=== PATIENT | female | born 1930 | race Caucasian/White ===

== ENCOUNTER 2017-06-26 18:25 | Inpatient (IN) | payer OTHER ==
[~2017-06-26] VITALS: Ht 160 cm; Wt 82.5 kg
--- NOTE | ~2017-06-26 | CR127 ---
[facility] A Service of [facility] RADIOLOGY TEXT RESULTS PATIENT: TAMRA WALDEN LOCATION: [facility] [address]-71 : 31 UNIT #: [id number] AGE: [address]: Rocio Marcelo MD SEX: F ORDER DR: [id number] [facility] [address] [facility] [place], [place] [address] [id number] I MR#: [id number] Acc #: [id number] NAME: TAMRA WALDEN : 1930 SEX: F STUDY DATE/TIME: 06/26/2017 19:14 UNIT: [facility] ROOM: [id number] STUDY DESCRIPTION: CR Foot Complete Min 3 View Rt Attending Physician: Rocio Marcelo M.D. Ordering Physician: Mery Tyson M.D. Primary Care Physician: Emily Portillo M.D. MEDICAL IMAGING REPORT This report is preliminary unless electronic signature is present EXAM Right foot, 3 views HISTORY Foot pain beginning 5 days ago. FINDINGS Three views of the right foot demonstrates multifocal arthritic changes most prominent at the talonavicular joint and tarsometatarsal joints and first MTP joint. No fracture or dislocation. Soft tissue swelling. Suspected hammertoe deformities. Metallic density projects over the second toe could represent a retained foreign body. IMPRESSION 1. Diffuse soft tissue swelling about the foot and ankle with a wire metal foreign body about the second toe near the PIP joint. This could represent a retained foreign body. Correlate clinically. 2. Multifocal arthritic changes involving midfoot and also first MTP joint. 3. Suspected hammertoe deformities. 4. Not mentioned above, there is extensive arteriovascular calcifications which may reflect peripheral vascular disease. Dictated by... Jayshree Phoenix M.D. THIS IS AN ELECTRONICALLY VERIFIED REPORT Jayshree Phoenix M.D. at 06/26/2017 10:05 PM JULIO/alberto TD: 06/26/2017 21:46 [facility] A Service [facility] RADIOLOGY TEXT RESULTS PATIENT: TAMRA WALEDN LOCATION: [facility] [address]-19 : 31 UNIT #: [id number] AGE: [address]: Rocio Marcelo MD SEX: F ORDER DR: JOB #: [id number] MEDICAL IMAGING REPORT Page 1 of 1 COPY
--- NOTE | ~2017-06-26 | OR ---
Unit #: [id number] #: [id number] Patient: TAMRA WALDEN [id number] [address] [place], [place] [address] [id number] I MR#: [id number] NAME: TAMRA WALDEN ROOM: [facility] Date of Procedure: 06/28/2017 Admission Date: 06/26/2017 Surgeon: Tejinder Yu M.D. : 1930 Attending Physician: Olena Ramirez M.D. Primary Care Physician: Emily Portillo M.D. OPERATIVE REPORT PREOPERATIVE DIAGNOSES 1. Right fifth toe gangrene. 2. Right deep foot infection. POSTOPERATIVE DIAGNOSES 1. Right fifth toe gangrene. 2. Right deep foot infection. PROCEDURES PERFORMED 1. Right foot incision and drainage of deep abscess (). 2. Right fifth toe amputation through metatarsophalangeal joint level (02007). ASSISTANTS Gaston and Lucy. ANESTHESIA General. INDICATIONS FOR SURGERY This 87-year-old female with 1-week history of right foot swelling, erythema, and pain following some unknown trauma to the plantar aspect of the foot, now is septic with a white blood cell count of 30,000. She has a fluctuant midfoot and is to undergo incision and drainage of a suspected deep abscess. MRI was ordered, but could not be completed because the patient was unable to keep still during the scan. She is therefore to undergo fifth toe amputation as well as incision and drainage of a deep abscess in the foot. DESCRIPTION OF PROCEDURE The patient was taken to the operating room and placed in supine position and general anesthetic was induced. The right foot was identified as the correct operative location during the time-out procedure. The IV antibiotic protocol was not followed, because she was on preoperative antibiotics. The right foot was then prepped and draped in the usual sterile fashion. The leg was exsanguinated only with gravity and the tourniquet inflated to 300 mmHg. A dorsal and plantar fish-mouth incision was made around the base of the fifth toe. The subcutaneous tissue was divided. Dissection proceeded directly down to the metatarsophalangeal joint level. The collateral ligaments, extensor and flexor tendons were divided and the toe was Unit #: [id number] #: [id number] Patient: TAMRA WALDEN removed. Aerobic and anaerobic cultures were taken. A 10 cm incision was then made from the fifth metatarsal head across the midfoot into the medial longitudinal arch. Dissection proceeded through the plantar fascia. Purulent fluid was obtained and this was sent for culture and sensitivity. Care was taken to open the flexor tendon sheath of the FDL and FHL tendons to ensure that there was no pus tracking up above the level of the ankle joint. Additional subcutaneous abscesses were found in the plantar foot and these were also decompressed. Aerobic and anaerobic cultures were taken from the deep midfoot abscess as well. The wound was then irrigated with 1 L of normal saline. The wound was then packed open with Betadine-soaked 2-inch roll gauze. Additional dressing, sponges, ABD pads, cast padding, and Elijah wraps were applied. The patient was then transported to the recovery room in stable condition. ESTIMATED BLOOD LOSS Minimal. COMPLICATIONS None. SPECIMENS 1. Right fifth toe. 2. Right fifth toe cultures. 3. Right deep midfoot cultures. PLAN The patient will undergo daily dressing changes and continue IV antibiotics which will be adjusted according to cultures. We will most likely have the patient return to the operating room in the near future for additional debridement as needed. We will allow the wound to heal by secondary intention. We have spoken with the family and warned that the patient may require amputation at some point in the future. Dictated byAleksey Lynch/guillermina TD: 06/28/2017 11:34 JOB #: [id number] OPERATIVE REPORT Page 1 of 1 X Rosalva Yu MD X PROCEDURE OPERATIVE NOTE
--- NOTE | ~2017-06-26 | CO ---
Unit #: [id number] #: [id number] Patient: MARY ANN WALDEN [id number] [address] [place], [place] [address] [id number] Ketty MR#: [id number] NAME: MARY ANN WALDEN ROOM: [facility] Age: 87 Sex: F Admission Date: 06/26/2017 : 1930 Attending Physician: Olena Ramirez M.D. Primary Care Physician: Emily Portillo M.D. Consultation Date: 06/27/2017 CONSULTATION REPORT REASON FOR CONSULT Renal failure. HISTORY OF PRESENT ILLNESS Thank you for asking me to see this patient in consultation again. Ms. Mary Ann Walden is an 87-year-old female who apparently dropped something on her foot several days ago. According to the notes, the patient currently is arousable but confused. She has had some increased swelling of that foot on the right side. It began about four or five days ago. She was admitted for possible cellulitis, sepsis and hypotension. She was given fluid boluses and now in the unit on a bicarb drip. She was noted to have a creatinine in April of last year of 1.2, the lowest. It ranged from 1.2 to 1.7 and appears to have probably some underlying chronic kidney disease, although BUN and creatinine were 55 and 3.5 upon admission and up to 3.7 creatinine now with decreased urine output. At this time I was asked to see the patient. The patient again is arousable but confused. She really cannot answer any questions. PAST MEDICAL HISTORY 1. History of atrial fibrillation. She apparently has been on Coumadin in the past. I am unsure if she is on it now or not, although INR is mildly elevated. 2. She has a history of hypertension. 3. History of hyperlipidemia. 4. History of anemia. 5. History of pulmonary hypertension. 6. History of moderate mitral regurgitation. 7. History of gastroesophageal reflux disease. 8. History of depression. 9. History of anxiety. 10. History of arthritis. Unknown if she took any nonsteroidals or not. 11. History of hyperlipidemia. PAST SURGICAL HISTORY 1. Knee surgery. 2. Hysterectomy. SOCIAL HISTORY She is and lives with her son and . No alcohol. No smoking. FAMILY HISTORY Noncontributory. Unit #: [id number] #: [id number] Patient: MARY ANN WALDEN ALLERGIES Codeine and intolerance to morphine. HOME MEDICATIONS 1. Celexa 40 mg daily. 2. Metoprolol 25 mg b.i.d. 3. Potassium pill. 4. Iron pill. 5. Lovastatin 40 mg daily. 6. Questionable Coumadin. CURRENT MEDICATIONS 1. D5 with 3 amps of bicarb at 150 cc an hour. 2. Pepcid. 3. Levophed drip now. 4. Lovenox 30 q.24 h. 5. Zyvox 300 mg q.12 h. 6. Lipitor 10 mg at night. 7. Zosyn. 8. Lopressor. 9. Florastor. 10. Iron pill. 11. Celexa. REVIEW OF SYSTEMS Really unable to obtain at this time. According to the notes, there has been increased swelling of her feet, but again I am unable to get any more out of her at this time. PHYSICAL EXAMINATION VITALS: Temperature 98.7, pulse 93-111, blood pressure 60s to 130s/40s to 60s. HEENT: She is normocephalic, atraumatic. Pupils are equal and reactive to light. Her mouth is dry. No erythema. No exudate. NECK: Supple. No adenopathy. LUNGS: Decreased breath sounds bilaterally. HEART: Irregular rhythm without a rub. No S3 or S4. ABDOMEN: Bowel sounds positive. Nontender and soft. She does have some mild body edema. EXTREMITIES: She has some mild lower extremity edema on her left she has increased swelling on her right with erythema of the right lower leg and foot. NEUROLOGIC: She is able to move all extremities, but again decreased response. : Ocampo catheter is in place. DIAGNOSTIC STUDIES LABORATORY: This morning, sodium 134, potassium 4.6, chloride 107, bicarb 13, BUN 54, creatinine 3.7, glucose 114, calcium 7.8, albumin 2.8, CPK 182, total bilirubin 1.9, BNP 1521, total iron saturation 5. Hemoglobin 9.4, white blood cell count 30,400, platelets 199,000. Urinalysis shows serum creatinine 1.023, 2+ protein, 100-200 WBCs, 2+ bacteria. Lactic acid 3.0, down from 3.3. INR 1.7. ABG shows pH 7.245, pCO2 36, pO2 109. ASSESSMENT/PLAN 1. Acute kidney injury on probable chronic kidney disease stage 3. Certainly renal function is worse. Decreased urine output. I am sure Unit #: [id number] #: [id number] Patient: MARY ANN WALDEN a lot of it is related to ATN from hypotension and possible sepsis. I agree with fluid resuscitation as well as pressors. Certainly, at this point I time she does not need dialysis, but if her acid based status worsens or if she becomes hyperkalemic or severely fluid overloaded, then we will need to consider starting her on hemodialysis/possible CRRT. I did call the son just now and he wants whatever can be done, including dialysis if needed. We will check labs a little bit later today and will evaluate. Will check a renal ultrasound to rule out obstruction. I have asked the nurse to flush the Ocampo and will follow. 2. Acid based status. The patient appears to have a combination of both metabolic and respiratory acidosis on a bicarb drip for now. Again, will check labs later today. Pulmonary has seen the patient. 3. Sepsis. Possibly from right foot versus urine versus other, on multiple antibiotics. Cultures pending. 4. History of atrial fibrillation. 5. History of pulmonary hypertension. 6. History of gastroesophageal reflux disease. Certainly agree with Pepcid over PPI due to risks of renal disease. Dictated by.Aleksey Alvares/mari TD: 06/27/2017 11:34 JOB #: [id number] CONSULTATION REPORT Page 1 of 1 X Corbin Gimenez MD X CONSULTATION REPORT
--- NOTE | ~2017-06-26 | CT71 ---
[facility] A Service of [facility] RADIOLOGY TEXT RESULTS PATIENT: TAMRA WALDEN LOCATION: [place] [address]15 : 31 UNIT #: [id number] AGE: [address]: Olena Ramirez MD SEX: F ORDER DR: [id number] [place] [id number] [facility]. [place], [place] [address] [id number] I MR#: [id number] Acc #: [id number] NAME: TAMRA WALDEN : 1930 SEX: F STUDY DATE/TIME: 07/01/2017 1:55 UNIT: [facility] ROOM: [facility] STUDY DESCRIPTION: CT Head Wo Contrast Attending Physician: Olena Ramirez M.D. Ordering Physician: Olena Ramirez M.D. Primary Care Physician: Emily Portillo M.D. MEDICAL IMAGING REPORT This report is preliminary unless electronic signature is present EXAM CT head, noncontrast, 07/01/2017 HISTORY 87-year-old female hospital inpatient with multiple medical problems including MRSA, lower extremity cellulitis, hypoxia, congestive heart failure and acute kidney injury. Acute mental status changes are noted over the last 3 days including confusion and lethargy. TECHNIQUE CT examination of the head without IV contrast. This CT exam was performed with one or more of the following radiation dose reduction techniques: automatic exposure control, adjustment of mA and/or kV according to patient size, and iterative reconstruction. FINDINGS No acute intracranial abnormality is identified. Mild generalized cerebral cortical atrophy. Mild diffuse low-attenuation white matter changes are nonspecific but very likely related to chronic microvascular disease. These findings are stable since 04/26/2016. No evidence of intracranial hemorrhage, mass, mass effect, cerebral edema or progressive ventricular enlargement. IMPRESSION 1. No acute intracranial abnormality. 2. Mild diffuse chronic changes as noted above. 3. No change since 04/26/2016. Dictated by... Hussein Mora M.D. [facility] A Service [facility] RADIOLOGY TEXT RESULTS PATIENT: TAMRA WALDEN LOCATION: [facility] CICCU3-15 : 31 UNIT #: [id number] AGE: [address]: Olena Ramirez MD SEX: F ORDER DR: THIS IS AN ELECTRONICALLY VERIFIED REPORT Hussein Mora M.D. at 07/01/2017 5:07 PM Bianca TD: 07/01/2017 10:17 JOB #: [id number] MEDICAL IMAGING REPORT Page 1 of 1 COPY
--- NOTE | ~2017-06-26 | US77 ---
[facility] A Service of [facility] RADIOLOGY TEXT RESULTS PATIENT: TAMRA WALDEN LOCATION: [address] : [birth year] UNIT #: [id number] AGE: [address]: Olena Ramirez MD SEX: F ORDER DR: [id number] [facility] [address] [facility]. [place], [place] [address] [id number] I MR#: [id number] Acc #: [id number] NAME: TAMRA WALDEN : 1930 SEX: F STUDY DATE/TIME: 06/27/2017 15:46 UNIT: [facility] ROOM: [facility] STUDY DESCRIPTION: US Kidney Bilateral Complete Attending Physician: Olena Ramirez M.D. Ordering Physician: Aguila Gimenez M.D. Primary Care Physician: Emily Portillo M.D. MEDICAL IMAGING REPORT This report is preliminary unless electronic signature is present EXAM Renal ultrasound INDICATION Acute renal failure for 1 day. EGFR 10.8. COMPARISON None available. FINDINGS The right kidney measures 10.7 cm. The left kidney measures 10 cm. Renal cortical thickness and echogenicity is normal. No hydronephrosis. The bladder is not visualized. IMPRESSION 1. Negative renal ultrasound. No hydronephrosis. 2. Gallstones are incidentally seen in the gallbladder. Dictated by... Shaheen Chapman M.D. THIS IS AN ELECTRONICALLY VERIFIED REPORT Shaheen Chapman M.D. at 06/28/2017 4:16 PM KIM/mo TD: 06/28/2017 04:07 JOB #: [id number] MEDICAL IMAGING REPORT Page 1 of 1 COPY
--- NOTE | ~2017-06-26 | OR ---
Unit #: [id number] #: [id number] Patient: TAMRA WALDEN [id number] [address] [place], [place] [address] [id number] Ketty MR#: [id number] NAME: TAMRA WALDEN ROOM: [facility] Date of Procedure: 06/29/2017 Admission Date: 06/26/2017 Surgeon: Isiah Schmitt M.D. : 1930 Attending Physician: Olena Ramirez M.D. Primary Care Physician: Emily Portillo M.D. OPERATIVE REPORT PROCEDURES PERFORMED 1. Ultrasound-guided access of left internal jugular vein. 2. Placement of nontunneled dialysis catheter. INDICATIONS FOR PROCEDURE This is an 87-year-old female. We were asked by the Nephrology service to place a temporary dialysis catheter because of acute renal injury. The ICU team talked to the patient and family members regarding the risks and benefits of the procedure. They elected to proceed. PREOPERATIVE DIAGNOSIS Acute renal injury requiring dialysis. POSTOPERATIVE DIAGNOSIS Acute renal injury requiring dialysis. 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 DESCRIPTION OF PROCEDURE After informed consent was obtained, the patient's left neck and chest were prepped and draped in sterile fashion. The patient already had a right-sided central line, and thus I elected to place the dialysis catheter in the left side. Using ultrasound guidance, I confirmed the patency of the left internal jugular vein. I infiltrated 1% lidocaine into the skin. I then accessed to the left internal jugular vein under ultrasound guidance with a microneedle. I then advanced a micro Glidewire easily, I then exchanged my micro needle for 4-Irish micro sheath catheter using Seldinger technique. I then advanced the starter wire. I did meet some resistance at roughly 20 cm, and I presumed that it was from the previous right-sided internal jugular central line. With some manipulation, however, the wire then advanced easily. I then removed the 4-Irish sheath catheter, made a skin osorio with an #11 blade over this starter wire. I then serially dilated the left neck. I then selected a 20 cm Shiley catheter, which was advanced over the wire to the hub. I then removed the wire. I then aspirated and flushed all 3 ports easily. The catheter was then sutured into place using 3-0 nylon. A sterile dressing was then applied over the catheter. ESTIMATED BLOOD LOSS 5 mL. Unit #: [id number] #: [id number] Patient: TAMRA WALDEN FINDINGS Postprocedure chest x-ray shows the tip in the SVC. SPECIMEN None. COMPLICATIONS None. Dictated by... Aleksey Ledesma TD: 06/30/2017 06:04 JOB #: [id number] OPERATIVE REPORT Page 1 of 1 X X PROCEDURE OPERATIVE NOTE
--- NOTE | ~2017-06-26 | CR72 ---
[facility] A Service of [facility] RADIOLOGY TEXT RESULTS PATIENT: TAMRA WALDEN LOCATION: [place] [address]-15 : 31 UNIT #: [id number] AGE: [address]: Olena Ramirez MD SEX: F ORDER DR: [id number] [facility] [address] [facility] [place], [place] [address] [id number] I MR#: [id number] Acc #: [id number] NAME: TAMRA WALDEN : 1930 SEX: F STUDY DATE/TIME: 06/28/2017 6:18 UNIT: [facility] ROOM: [facility] STUDY DESCRIPTION: CR Chest Single View Portable Attending Physician: Olena Ramirez M.D. Ordering Physician: Rodney Wang M.D. Primary Care Physician: Emily Portillo M.D. MEDICAL IMAGING REPORT This report is preliminary unless electronic signature is present EXAM Portable chest. INDICATIONS Preop clearance, follow up cardiomegaly. FINDINGS Today's portable view of the chest is compared with yesterday's study. The heart is mildly enlarged. The feeding tube has its tip below the level of the film and it is at least in the stomach. The central venous catheter has its tip in the superior vena cava. Dictated by... Austin Acevedo M.D. THIS IS AN ELECTRONICALLY VERIFIED REPORT Austin Acevedo M.D. at 06/28/2017 1:29 PM JOSE/winston TD: 06/28/2017 13:06 JOB #: [id number] MEDICAL IMAGING REPORT Page 1 of 1 COPY
--- NOTE | ~2017-06-26 | CR72 ---
[facility] A Service of [facility] RADIOLOGY TEXT RESULTS PATIENT: TAMRA WALDEN LOCATION: [address] : 31 UNIT #: [id number] AGE: [address]: Olena Ramirez MD SEX: F ORDER DR: [id number] [facility] [address] [address] [place], [place] [address] [id number] I MR#: [id number] Acc #: [id number] NAME: TAMRA WALDEN : 1930 SEX: F STUDY DATE/TIME: 06/29/2017 11:14 UNIT: [facility] ROOM: [facility] STUDY DESCRIPTION: CR Chest Single View Portable Attending Physician: Olena Ramirez M.D. Ordering Physician: Olena Ramirez M.D. Primary Care Physician: Emily Portillo M.D. MEDICAL IMAGING REPORT This report is preliminary unless electronic signature is present EXAM Portable chest x-ray, 06/29/2017. HISTORY Line placement. Short of air for 3 days. REPORT AP radiograph of the chest is presented. COMPARISON 06/29/2017, 0304 hours. FINDINGS Right internal jugular approach central venous catheter unchanged. Interval placement of a multilumen left internal jugular approach central venous catheter which terminates in the upper to mid right atrium. Termination point may be artifactually low secondary to low lung volumes. Enteric tube extends to a level of distal stomach. Stable mild cardiac enlargement. Lung volumes lower than on prior examination with central bronchovascular crowding. Underlying vascular congestion persists. Abnormally increased hilar and perihilar interstitial and airspace densities extending toward the lower lung zones bilaterally, significantly more pronounced on the left than right. Given lower lung volumes, probably not significantly changed. Possible small left pleural effusion. The pulmonary parenchymal appearance may include some components of central atelectasis. Central pulmonary edema with interstitial airspace and left pleural space components is a consideration as well. Given the asymmetry of airspace disease left greater than right at the lung bases, a component of left basilar pneumonia is not strictly excluded. Weight should be given clinical assessment. There is no pneumothorax. [facility] A Service of [facility] RADIOLOGY TEXT RESULTS PATIENT: TAMRA WALDEN LOCATION: [address] : 31 UNIT #: [id number] AGE: [address]: Olena Ramirez MD SEX: F ORDER DR: Dictated by... Brady Doe M.D. THIS IS AN ELECTRONICALLY VERIFIED REPORT Brady Deo M.D. at 07/01/2017 7:36 AM JESSICA/claudette TD: 06/29/2017 19:06 JOB #: [id number] MEDICAL IMAGING REPORT Page 1 of 1 COPY
--- NOTE | ~2017-06-26 | CR72 ---
[facility] A Service of [facility] RADIOLOGY TEXT RESULTS PATIENT: TAMRA WALDEN LOCATION: [place] [address]-15 : 31 UNIT #: [id number] AGE: [address]: Olena Ramirez MD SEX: F ORDER DR: [id number] [facility] [address] [facility] [place] [facility]. [place], [place] [address] [id number] I MR#: [id number] Acc #: [id number] NAME: TAMRA WALDEN : 1930 SEX: F STUDY DATE/TIME: 07/01/2017 6:24 UNIT: [facility] ROOM: [facility] STUDY DESCRIPTION: CR Chest Single View Portable Attending Physician: Olena Ramirez M.D. Ordering Physician: Rodney Wang M.D. Primary Care Physician: Emily Portillo M.D. MEDICAL IMAGING REPORT This report is preliminary unless electronic signature is present EXAM Portable chest HISTORY Follow-up left lower lobe atelectasis. FINDINGS This portable view of the chest shows no change in left lower lobe atelectasis and mild cardiomegaly. The central venous catheter, Shiley catheter and Dobbhoff tube appear to be in good position. Dictated by... Austin Acevedo M.D. THIS IS AN ELECTRONICALLY VERIFIED REPORT Austin Acevedo M.D. at 07/01/2017 12:24 PM Yo TD: 07/01/2017 10:36 JOB #: [id number] MEDICAL IMAGING REPORT Page 1 of 1 COPY
--- NOTE | ~2017-06-26 | CR6 ---
[facility] A Service of [facility] & [facility] RADIOLOGY TEXT RESULTS PATIENT: TAMRA WALDEN LOCATION: [address]15 : 31 UNIT #: [id number] AGE: [address]: Olena Ramirez MD SEX: F ORDER DR: [id number] [facility] [address] [facility]. [place], [place] [address] [id number] I MR#: [id number] Acc #: [id number] NAME: TAMRA WALDEN : 1930 SEX: F STUDY DATE/TIME: 07/02/2017 20:46 UNIT: [facility] ROOM: [facility] STUDY DESCRIPTION: CR Abdomen Portable Sng View Attending Physician: Olena Ramirez M.D. Ordering Physician: Giovanny Jung M.D. Primary Care Physician: Emily Portillo M.D. MEDICAL IMAGING REPORT This report is preliminary unless electronic signature is present EXAM Single view abdomen INDICATIONS Abdominal distension. Abdominal pain. FINDINGS AP radiograph of the abdomen compared to 06/28/2017. Enteric tube is in the stomach projecting over the gastric antrum. There are multiple air-filled loops of small bowel. A few loops in the right lower quadrant are distended. There is minimal air in the colon. There is no acute osseous abnormalities. IMPRESSION Increasing abdominal increasing gaseous distension of small bowel loops. This should be closely followed. Differential considerations include ileus or possibly developing obstruction. Dictated by... Shaheen Chapman M.D. THIS IS AN ELECTRONICALLY VERIFIED REPORT Shaheen Chapman M.D. at 07/03/2017 7:51 PM KIM/trav TD: 07/03/2017 18:52 JOB #: [id number] MEDICAL IMAGING REPORT Page 1 of 1 COPY
--- NOTE | ~2017-06-26 | HP ---
Unit #: [id number] #: [id number] Patient: TAMRA WALDEN [id number] [address] [place], [place] [address] [id number] I MR#: [id number] NAME: TAMRA WALDEN ROOM: 71981 Age: 87 Sex: F Admission Date: 06/26/2017 : 1930 Attending Physician: Rocio Marcelo M.D. Primary Care Physician: Emily Portillo M.D. HISTORY AND PHYSICAL CHIEF COMPLAINT Right lower extremity cellulitis, rule out abscess, with early sepsis. HISTORY OF PRESENT ILLNESS This 87-year-old female with atrial fibrillation, essential hypertension, and pulmonary hypertension, is admitted for right lower extremity cellulitis. The patient herself is a poor historian. She reports that her dropped something or fell on her foot about four or five days ago. She notes increasing pain, swelling, and redness of the distal lower extremity since that time. She presented to this emergency department tonight in atrial fibrillation with RVR, heart rate 110, and initially mildly hypotensive with a blood pressure of 86/41. She was bolused with IV fluids and given vancomycin and [place]. Her blood pressure did respond to the liter of saline. Labs are notable for an elevated BNP, but the patient does have acute kidney injury as well. Chest x-ray shows perhaps some mild vascular congestion, but patient denies being more short of breath than usual. PAST MEDICAL HISTORY 1. Atrial fibrillation. In the past, she was anticoagulated with Coumadin. Unfortunately, we do not have a complete medication list. Last echo in March 2015 showed ejection fraction 55%, mild to moderate MR, moderate TR, sclerotic but not stenotic aortic valve, mild HI, and right ventricular systolic pressures of 50-60 mmHg. 2. Essential hypertension. 3. Hyperlipidemia. 4. Chronic anemia. 5. Pulmonary hypertension. 6. 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 7. Left thigh hematoma with supratherapeutic INR. 8. Bilateral total knee replacements. 9. section. 10. Hysterectomy. ALLERGIES Codeine and intolerant to morphine. HOME MEDICATIONS I only have a partial list which makes mention of Celexa 40 mg daily, Lopressor 25 mg b.i.d., potassium 10 mEq daily, iron 324 mg daily, and lovastatin 40 mg daily. Unit #: [id number] #: [id number] Patient: TAMRA WALDEN FAMILY HISTORY Coronary artery disease. SOCIAL HISTORY Patient lives with her and son. She is a lifelong nonsmoker and does not drink alcohol. It is unsure about her Living Will as she states that she does not have one. REVIEW OF SYSTEMS Notable for right leg swelling, pain, and redness, above-mentioned surgeries, hypertension, and atrial fibrillation. Patient denies any other symptoms, but she is a poor historian. All other review of systems are negative. PHYSICAL EXAMINATION GENERAL: A pleasant, obese, 87-year-old female who is mildly uncomfortable. VITAL SIGNS: Temperature 98.7, pulse 109, respirations 18, initial blood pressure 89/41, current systolic blood pressure is 124, and O2 saturation is 97% on room air. HEENT: Eyes PERRLA. Extraocular muscles are intact. Pharynx is benign. NECK: Supple without adenopathy or thyromegaly. CHEST: A few crackles at the bases. CARDIAC: Normal S1 and S2, irregularly irregular, tachycardic, with a soft systolic murmur best heard along the left sternal border. ABDOMEN: Bowel sounds are present. No hepatosplenomegaly, tenderness, or masses. EXTREMITIES: Bilateral edema but worse on the right with cellulitis of the distal right lower extremity and the entire right foot. There is a laceration with increasing swelling and some possible purulence by the plantar aspect of the right fifth toe. Pedal pulses are markedly diminished due to edema. NEUROLOGIC: Patient is awake and alert. She is fairly oriented. Her cranial nerves are intact. She has equal strength throughout. DIAGNOSTIC STUDIES ADMISSION LABORATORY: Hematocrit is 31.1 which is improved with normal MCV and platelet count and white blood count is 29.1 with 3 bands. INR is 1.5 and PTT is 31.8. SMA-12: Glucose is 49, BUN 55, creatinine 3.5, up from a BUN of 20 and creatinine of 1.2 last year, CO2 is 19, albumin 2.8, and alkaline phosphatase 148. BNP is 1521. Lactic acid is 3.3. C-reactive protein is 25. IMAGING: X-ray of the right foot and ankle show soft tissue swelling, a second toe metabolic foreign body, multifocal arthritic changes, and extensive arterial vascular calcifications. CARDIOLOGY: EKG shows atrial fibrillation with RVR, rate 110, with an old right bundle branch block which was noted previously. ASSESSMENT 1. Right foot/leg cellulitis, rule out abscess around the fifth toe. 2. Acute on chronic kidney disease. 3. Atrial fibrillation with RVR. 4. Essential hypertension with initial low blood pressure. 5. Sepsis secondary to foot and leg infection. 6. Pulmonary hypertension. Unit #: [id number] #: [id number] Patient: TAMRA WALDEN PLANS 1. IV fluids, Ocampo catheter, and obtain urinalysis and renal ultrasound. 2. Restart Lopressor. 3. Zosyn and Zyvox and orthopedic surgeon to see. Gentle pain medications. 4. DVT prophylaxis. 5. Repeat labs in the morning. 6. Need to obtain home medications. 7. Further consultants depending on above. 1. Dictated by Rocio Marcelo M.D. AML/am TD: 06/26/2017 21:54 JOB #: [id number] HISTORY AND PHYSICAL Page 1 of 1 X Rocio Marcelo MD X HISTORY AND PHYSICAL
--- NOTE | ~2017-06-26 | EKG ---
PATIENT: TARMA WALDEN UNIT #: [id number] Ventricular Rate: 94 BPM Atrial Rate: 76 BPM QRS Duration: 136 ms Q-T Interval: 376 ms QTC Calculation(Bezet): 470 ms Calculated R [place]: -2 degrees Calculated T [place]: -13 degrees Diagnosis Line: Atrial fibrillation Diagnosis Line: Right bundle branch block Diagnosis Line: Abnormal ECG Diagnosis Line: When compared with ECG of 28-JUN-2017 05:51, Diagnosis Line: No significant change was found Diagnosis Line: Confirmed by ONEYDA CHIN MD ([id number]) on 07/03/2017 Diagnosis Line: 2:46:06 PM INTERPRETING MD: ELSY SHABAZZ
--- NOTE | ~2017-06-26 | CR72 ---
[facility] A Service of [facility] & [facility] RADIOLOGY TEXT RESULTS PATIENT: TAMRA WALDEN LOCATION: [address]15 : 31 UNIT #: [id number] AGE: [address]: Olena Ramirez MD SEX: F ORDER DR: [id number] [facility] [address] [place], [place] [address] [id number] I MR#: [id number] Acc #: [id number] NAME: TAMRA WALDEN : 1930 SEX: F STUDY DATE/TIME: 06/27/2017 8:48 UNIT: [facility] ROOM: [facility] STUDY DESCRIPTION: CR Chest Single View Portable Attending Physician: Olena Ramirez M.D. Ordering Physician: Olena Ramirez M.D. Primary Care Physician: Emily Portillo M.D. MEDICAL IMAGING REPORT This report is preliminary unless electronic signature is present EXAM Portable chest 06/27/2017 HISTORY Shortness of breath for 1 day. Feeding difficulty, Dobbhoff tube placement today. FINDINGS There is moderate cardiomegaly. There is poor inspiratory result with bibasilar atelectasis. Dobbhoff tube has been inserted but the tip is located in the distal esophagus above the level of the gastroesophageal junction. The tube should be advanced into the stomach before using. IMPRESSION 1. The Dobbhoff tube tip is in the region of the distal esophagus located just above the level of the gastroesophageal junction. The tube should be advanced into the stomach before using. 2. Cardiomegaly. Poor inspiratory result with bibasilar atelectasis. Dictated by... Jass Soto M.D. THIS IS AN ELECTRONICALLY VERIFIED REPORT Jass Soto M.D. at 06/28/2017 7:13 AM LUDA/judy TD: 06/27/2017 12:00 JOB #: [id number] MEDICAL IMAGING REPORT Page 1 of 1 COPY
--- NOTE | ~2017-06-26 | CR72 ---
[facility] A Service of [facility] RADIOLOGY TEXT RESULTS PATIENT: TAMRA WALDEN LOCATION: [place] [address]-15 : [birth year] UNIT #: [id number] AGE: [address]: Olena Ramirez MD SEX: F ORDER DR: [id number] [facility] [address] [facility]. [place], [place] [address] [id number] I MR#: [id number] Acc #: [id number] NAME: TMARA WALDEN : 1930 SEX: F STUDY DATE/TIME: 07/02/2017 9:57 UNIT: [facility] ROOM: [facility] STUDY DESCRIPTION: CR Chest Single View Portable Attending Physician: Olena Ramirez M.D. Ordering Physician: Mario Talbert M.D. Primary Care Physician: Emily Portillo M.D. MEDICAL IMAGING REPORT This report is preliminary unless electronic signature is present EXAM Portable chest. HISTORY Pneumonia and atrial fibrillation with shortness of breath over the past six days. TECHNIQUE Single AP view of the chest was obtained and compared with 07/01/17. FINDINGS Tubes and supporting devices remain satisfactory. The heart and mediastinum are stable with cardiomegaly noted. The right lung is clear. There is consolidation at the left lung base, but is unchanged. Vascular markings are normal. IMPRESSION Mild consolidation at the left lung base is again noted and unchanged from the previous exam. No new infiltrates are seen. STAT * RESULT Dictated by... Negro Mohr M.D. THIS IS AN ELECTRONICALLY VERIFIED REPORT Negro Mohr M.D. at 07/02/2017 11:30 AM JAYESHF/winston TD: 07/02/2017 10:54 JOB #: [id number] [facility] A Service of [facility] RADIOLOGY TEXT RESULTS PATIENT: TAMRA WALDEN LOCATION: [facility] CICCU3-15 : 31 UNIT #: [id number] AGE: [address]: Olena Ramirez MD SEX: F ORDER DR: MEDICAL IMAGING REPORT Page 1 of 1 COPY
--- NOTE | ~2017-06-26 | CR6 ---
[facility] A Service of [facility] RADIOLOGY TEXT RESULTS PATIENT: TAMRA WALDEN LOCATION: [address]15 : [birth year] UNIT #: [id number] AGE: [address]: Olena Ramirez MD SEX: F ORDER DR: [id number] [facility] [address] [address] [facility]. [place], [place] [address] [id number] I MR#: [id number] Acc #: [id number] NAME: TAMRA WALDEN : 1930 SEX: F STUDY DATE/TIME: 06/28/2017 12:21 UNIT: [facility] ROOM: [facility] STUDY DESCRIPTION: CR Abdomen Portable Sng View Attending Physician: Olena Ramirez M.D. Ordering Physician: Olena Ramirez M.D. Primary Care Physician: Emily Portillo M.D. MEDICAL IMAGING REPORT This report is preliminary unless electronic signature is present EXAM Abdomen one-view, 06/28/2017 12:21 hours HISTORY Dobbhoff tube placement. Abdominal pain today. COMPARISON 06/27/2017 FINDINGS Supine view of the abdomen demonstrates a nonspecific bowel gas pattern without evidence of obstruction. The right flank and the pelvis are excluded from the film. There is a skin fold in the right upper quadrant. No definite free air. Dobbhoff tube has been advanced with tip in the right mid abdomen most likely in the second portion of the duodenum. IMPRESSION 1. No bowel obstruction or distension. There is a skin fold over the right upper quadrant. No free air is seen. 2. Dobbhoff tube has been advanced. The tip is now directed inferiorly and rightward in the right mid abdomen most likely in the second portion of the duodenum. Dictated by... Kala rEvin M.D. THIS IS AN ELECTRONICALLY VERIFIED REPORT Kala Ervin M.D. at 06/28/2017 6:57 PM Dat TD: 06/28/2017 17:27 JOB #: [id number] [facility] A Service of [facility] & [facility] RADIOLOGY TEXT RESULTS PATIENT: TAMRA WALDEN [id number] [birth year] UNIT #: [id number] AGE: [address]: Olena Ramirez MD SEX: F ORDER DR: MEDICAL IMAGING REPORT Page 1 of 1 COPY
--- NOTE | ~2017-06-26 | EKG ---
PATIENT: TAMRA WALDEN UNIT #: [id number] Ventricular Rate: 111 BPM Atrial Rate: 127 BPM QRS Duration: 142 ms Q-T Interval: 382 ms QTC Calculation(Bezet): 519 ms Calculated R [place]: -5 degrees Calculated T [place]: -29 degrees Diagnosis Line: Atrial fibrillation with rapid ventricular Diagnosis Line: response Diagnosis Line: Right bundle branch block Diagnosis Line: Abnormal ECG Diagnosis Line: When compared with ECG of 26-APR-2016 16:18, Diagnosis Line: Atrial fibrillation has replaced Sinus rhythm Diagnosis Line: Confirmed by ONEYDA CHIN MD ([id number]) on 06/28/2017 Diagnosis Line: 11:31:08 PM INTERPRETING MD: ELSY SHABAZZ
--- NOTE | ~2017-06-26 | CR72 ---
[facility] A Service of [facility] & [facility] RADIOLOGY TEXT RESULTS PATIENT: TAMRA WALDEN LOCATION: [place] [address]85 : 31 UNIT #: [id number] AGE: [address]: Rocio Marcelo MD SEX: F ORDER DR: [id number] [facility] [address] [place], [place] [address] [id number] I MR#: [id number] Acc #: [id number] NAME: TAMRA WALDEN : 1930 SEX: F STUDY DATE/TIME: 06/26/2017 19:12 UNIT: [facility] ROOM: 19458 STUDY DESCRIPTION: CR Chest Single View Portable Attending Physician: Rocio Marcelo M.D. Ordering Physician: Mery Tyson M.D. Primary Care Physician: Emily Portillo M.D. MEDICAL IMAGING REPORT This report is preliminary unless electronic signature is present EXAM Portable chest. HISTORY Chest pain beginning 5 days ago. COMPARISON 04/27/2016 FINDINGS Portable view of the chest demonstrates cardiomegaly. Mild prominence of the pulmonary vascularity and interstitium could reflect mild failure. No infiltrates or effusions. Mediastinum and great vessels unremarkable except for mild atherosclerotic changes. Deformity of the proximal left humerus suggests old fracture. No pneumothorax. Dictated by... Jayshree Phoenix M.D. THIS IS AN ELECTRONICALLY VERIFIED REPORT Jayshree Phoenix M.D. at 06/26/2017 10:05 PM JULIO/mo TD: 06/26/2017 21:37 JOB #: [id number] MEDICAL IMAGING REPORT Page 1 of 1 COPY
--- NOTE | ~2017-06-26 | CO ---
Unit #: [id number] #: [id number] Patient: TAMRA WALDEN [id number] [address] [place], [place] [address] [id number] I MR#: [id number] NAME: TAMRA WALDEN ROOM: [facility] Age: 87 Sex: F Admission Date: 06/26/2017 : 1930 Attending Physician: Olena Ramirez M.D. Primary Care Physician: Emily Portillo M.D. Consultation Date: 07/01/2017 CONSULTATION REPORT REASON FOR EVALUATION Thrombocytopenia, please evaluate. HISTORY OF PRESENT ILLNESS This is an 87-year-old lady who is in and out responsive currently, who came in with cellulitis and abscess in the great toe, status post drainage of the abscess, but the cellulitis is progressive. 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 No family is available in the room. The patient is not very communicative. The majority of the history is obtained from the chart mainly. The patient is an 87-year-old lady who came in about five days ago due to cellulitis with pain and the fifth toe swollen. She has a history of atrial fibrillation, essential hypertension, chronic anemia, hyperlipidemia, pulmonary hypertension and this decreased mentation, possible dementia. No past history of thrombocytopenia or bleeding. SOCIAL HISTORY The patient lives with and son. Nonsmoker. No alcohol usage. FAMILY HISTORY Unavailable. REVIEW OF SYSTEMS Not available. Mainly not reliable as the patient is in and out. She fell asleep while I was trying to communicate. PHYSICAL EXAMINATION GENERAL: The patient looks her stated age. In and out. Drowsy or sleepy. Answers yes and no or periodically nodding her head. LYMPH: No palpable nodes. LUNGS: Crackles. No rales. HEART: Distant S1 and S2. ABDOMEN: No palpable liver or spleen. No tenderness. EXTREMITIES: Lower extremities showing bandages. I did not remove them. DIAGNOSTIC STUDIES LABORATORY: CBC, hemoglobin 9, hematocrit 27.4, white blood cell count 16.5, platelets 83,000. CMP, sodium 135, potassium 4.5, chloride 101, CO2 25, glucose 93, BUN 46, creatinine 2.3. Peripheral smear was examined. No schistocytes, fair amount of left shift, no blasts seen. Platelets are large. No platelet clumps. ASSESSMENT Unit #: [id number] #: [id number] Patient: TAMRA WALDEN Most probable sepsis related thrombocytopenia. Cannot completely rule out HIT. No evidence of TTP or DIC. PLAN Agree with workup and plans. I would hole heparin for now. Check a serotonin release assay and heparin antibody today. Will check a CBC every day for the coming two to three days and follow with you. Dictated by... Aleksey Tovar/mari TD: 07/01/2017 15:28 JOB #: [id number] CONSULTATION REPORT Page 1 of 1 X Abelino Chu MD X CONSULTATION REPORT
--- NOTE | ~2017-06-26 | CR72 ---
[facility] A Service of [facility] & [facility] RADIOLOGY TEXT RESULTS PATIENT: TAMRA WALDEN LOCATION: [address]15 : 31 UNIT #: [id number] AGE: [address]: Olena Ramirez MD SEX: F ORDER DR: [id number] [facility] [address] [place], [place] [address] [id number] I MR#: [id number] Acc #: [id number] NAME: TAMRA WALDEN : 1930 SEX: F STUDY DATE/TIME: 06/29/2017 3:04 UNIT: [facility] ROOM: [facility] STUDY DESCRIPTION: CR Chest Single View Portable Attending Physician: Olena Ramirez M.D. Ordering Physician: Rodney Wang M.D. Primary Care Physician: Emily Portillo M.D. MEDICAL IMAGING REPORT This report is preliminary unless electronic signature is present EXAM Chest x-ray, 06/29/2017. HISTORY 87-year-old female hospital inpatient status post surgery for gangrenous foot. Respiratory failure. TECHNIQUE AP portable chest x-ray. FINDINGS Moderately severe cardiomegaly is stable. Mildly increased diffuse interstitial markings today when compared with yesterday's study may indicate new or increasing mild vascular congestion, correlate clinically. There is also increasing opacity of the left lung base behind the heart, which may represent pleural effusion or new infiltrate or atelectasis. Right IJ central line in good position. Feeding tube below the diaphragm. IMPRESSION 1. Moderate cardiomegaly with potential mild vascular congestion that is new or increased since yesterday. 2. Increasing left lung base opacity may represent small left pleural effusion. Dictated by... Hussein Mora M.D. THIS IS AN ELECTRONICALLY VERIFIED REPORT Hussein Mora M.D. at 06/29/2017 10:03 PM SUMEET/winston TD: 06/29/2017 10:44 JOB #: [id number] [facility] A Service of [facility] & [facility] RADIOLOGY TEXT RESULTS PATIENT: TAMRA WALDEN LOCATION: [facility] CICCU3-15 : 31 UNIT #: [id number] AGE: [address]: Olena Ramirez MD SEX: F ORDER DR: MEDICAL IMAGING REPORT Page 1 of 1 COPY
--- NOTE | ~2017-06-26 | DS ---
Unit #: [id number] #: [id number] Patient: TAMRA WALDEN [id number] [address] [address] [id number] I MR#: [id number] NAME: TAMRA WALDEN ROOM: [facility] Age: 87 Sex: F Admission Date: 06/26/2017 : 1930 Discharge Date: 07/03/2017 Attending Physician: Olena Ramirez M.D. Primary Care Physician: Emily Portillo M.D. DISCHARGE SUMMARY PRINCIPAL DIAGNOSES 1. Septic shock secondary to right foot abscess with associated gangrene and cellulitis. Causative organisms include methicillin-resistant Staphylococcus aureus and Enterobacter cloacae. 2. Acute on chronic systolic congestive heart failure with ejection fraction of 25% to 30%. 3. Acute hypoxic respiratory failure. 4. Escherichia coli urinary tract infection. 5. Toxic metabolic encephalopathy, multifactorial. 6. Lactic acidosis. 7. Acute kidney injury on chronic kidney disease stage 3 requiring hemodialysis. 8. Acute tubular necrosis. 9. Chronic atrial fibrillation. 10. Subtherapeutic International Normalized Ratio. 11. Questionable bowel perforation. 12. Pulmonary hypertension. 13. Severe protein malnutrition. 14. Memory loss. 15. Obesity. 16. Anemia. 17. Recurrent hypoglycemia. 18. Thrombocytopenia with questionable heparin-induced thrombocytopenia. CONSULTANTS 1. Dr. Yu, orthopedic surgery. 2. Dr. Gimenez, nephrology. 3. Dr. Talbert, cardiology. 4. Dr. Wang, pulmonology. 5. Dr. Chu, oncology. PROCEDURES Right foot incision and drainage of deep abscess and amputation through the right fifth metatarsophalangeal joint on June 28, 2017. DIAGNOSTIC STUDIES CARDIOVASCULAR: Two-dimensional echocardiogram on June 27, 2017 with ejection fraction of 25% to 30%, siebjmqh-qp-trrxwr mitral regurgitation, chmlojtm-ft-wofkud tricuspid regurgitation, gavgnkcq-bm-rkduuy pulmonic valve regurgitation, elevated right ventricular systolic pressure of 60 mmHg. CLINICAL HISTORY AND HOSPITAL COURSE Ms. Walden was an 87-year-old female who was brought in to the Unit #: [id number] #: [id number] Patient: TAMRA WALDEN emergency department with decreasing mental status and increasing swelling and pain of the right foot. The patient was found to have significant abscess in the emergency department. She was also hypotensive. Imaging of the foot in the emergency department revealed a questionable foreign body. The patient was ultimately admitted to the ICU due to her hypotension. The morning following admission, the patient remained hypotensive despite fluid bolus and ultimately required pressor therapy. In regard to her foot infection, she was placed on broad-spectrum antibiotics and orthopedic service was consulted. Ultimately the patient underwent amputation of her fifth toe, in addition to drainage of deep abscess. Unfortunately, the patient developed increasing necrosis of the foot over the next several days. The plans had been to proceed with uxqkb-hhh-ijjy amputation, but the patient's clinical status declined as outlined below. The patient also presented with severe renal failure, for which nephrology was consulted. Baseline creatinine appears to be approximately 1.3, but the patient's creatinine continued to increase to 4.2 with associated acidosis and electrolyte abnormalities. The patient was started on hemodialysis. The patient also developed some significant pulmonary edema due to some acute systolic congestive heart failure. She was also in chronic atrial fibrillation, which overall, remained relatively rate controlled throughout hospitalization. The patient also had significantly decreased mental status throughout the entire hospitalization. CT scan of the head, however, was unremarkable, and record review indicates she likely has some underlying memory loss, as well. After discussion with family, and given lack of patient's clinical progress, the family opted to make her DNR. On the morning of the the patient was noted to have increasing abdominal distention and decreased stool output. Abdominal x-ray was done and was abnormal, and NG tube was placed. However, the patient had subsequent drop in heart rate and subsequently went into PEA. She on July 03, 2017 at 3:20 in the morning. Dictated by... Olena Ramirez M.D. BETTE/hernan TD: 07/04/2017 10:52 JOB #: [id number] Unit #: [id number] #: [id number] Patient: TAMRA WALDEN ROLANDO DISCHARGE SUMMARY Page 1 of 1 X Olena Ramirez MD X DISCHARGE SUMMARY
--- NOTE | ~2017-06-26 | CO ---
Unit #: [id number] #: [id number] Patient: TAMRA WALDEN [id number] [address] [place], [place] [address] [id number] I MR#: [id number] NAME: TAMRA WALDEN ROOM: [facility] Age: 87 Sex: F Admission Date: 06/26/2017 : 1930 Attending Physician: Olena Ramirez M.D. Primary Care Physician: Emily Portillo M.D. CONSULTATION REPORT CHIEF COMPLAINT Right leg infection. HISTORY OF PRESENT ILLNESS The patient is an 87-year-old female who was admitted yesterday with right lower extremity cellulitis. The exact mechanism of injury is unknown, but the patient does have a transverse laceration at the base of her fifth toe. She was seen in the emergency room with an elevated heart rate of 110 secondary to atrial fibrillation with rapid ventricular response. She was admitted to the ICU, subsequently noted to have an acute kidney injury with an elevated creatinine. The patient was started on IV antibiotics to include Zyvox. Cultures have not been taken of the foot, but she has had negative blood cultures at 48 hours. Her white blood cell count is elevated at 30.4 with 94% poly's and 2% lymphs. PAST MEDICAL HISTORY Past medical history is remarkable for atrial fibrillation, hypertension, pulmonary hypertension, acute kidney injury, hyperlipidemia, chronic anemia. PAST SURGICAL HISTORY Bilateral total knee arthroplasty, , hysterectomy. CURRENT MEDICATIONS Hydrocodone, Lovenox, Zyvox, Lipitor, Zofran, Zosyn, Lopressor, Florastor, ferrous gluconate, Celexa, sodium bicarbonate. ALLERGIES Codeine and morphine. SOCIAL HISTORY The patient lives with her and son. She is a lifelong nonsmoker and does not drink alcohol. PHYSICAL EXAMINATION GENERAL: This is an obese elderly female in no acute distress. The patient has a feeding tube in place. I have asked her several questions, but she does not answer. HEIGHT/WEIGHT: Height is 5'3", weight 177 pounds. EXTREMITIES: Evaluation of the right leg shows tense swelling to the knee with erythema globally in the foot all the way to the knee. There is apparently fluctuance in the plantar aspect of the midfoot, and there is a 2-cm transverse laceration at the base of the plantar 5th metatarsal, which extends down to the joint with exposed tendon. There is purulent Unit #: [id number] #: [id number] Patient: TAMRA WALDEN drainage from this wound. Pulses are not palpated. Sensation is difficult to test. Motor exam could not be tested. DIAGNOSTIC STUDIES IMAGING: AP, lateral and oblique views of the right foot show no acute bony changes with the exception of osteopenia and underlying generalized arthritis. There is a metallic foreign body, which appears to be a metal wire, in the soft tissues of the second toe, which does not correlate with her wounds and fluctuance. LABORATORY: Laboratories show a hemoglobin of 9.4, hematocrit 29.9, white blood cell count 30.4. INR 1.7. Creatinine 3.7. Blood cultures are negative thus far. IMPRESSION Right fifth toe plantar laceration with probable deep midfoot infection. PLAN 1. MRI right foot. Will review the results as soon as it is done. 2. She will most likely require right foot incision and drainage with possible fifth toe and fifth ray amputation. Will have to obtain preoperative medical clearance. The risks and benefits of the procedure will be explained to the patient's family when they are available to talk with me. 3. Will also cultures from the right plantar foot infected wound. 4. Hold Lovenox for now. 5. STAT PT-INR in the morning. Dictated byLilian Yu M.D. MARYA/hernan TD: 06/28/2017 07:43 JOB #: [id number] CONSULTATION REPORT Page 1 of 1 X Rosalva Yu MD X CONSULTATION REPORT
--- NOTE | ~2017-06-26 | US84 ---
[id number] [facility] [address]. [place], [place] [address] [id number] I MR#: [id number] Acc #: [id number] NAME: TAMRA WALDEN : 1930 SEX: F STUDY DATE/TIME: 06/27/2017 15:54 UNIT: [facility] ROOM: [facility] STUDY DESCRIPTION: US LE Veins Complete Bacilio Stdy Attending Physician: Olena Ramirez M.D. Ordering Physician: Mery Tyson M.D. Primary Care Physician: Emily Portillo M.D. MEDICAL IMAGING REPORT This report is preliminary unless electronic signature is present EXAM Bilateral lower extremity venous duplex Doppler INDICATIONS Right foot cellulitis for 1 day. Right foot pain for 1 day. COMPARISON None available. FINDINGS No deep vein thrombus is identified in the bilateral lower extremities. The common femoral veins through the popliteal veins are widely patent. There is normal compressibility with spontaneous and phasic waveforms. No calf vein thrombus. Please note the peroneal veins were nonvisualized. IMPRESSION Negative for bilateral lower extremity deep vein thrombosis. Dictated by... Shaheen Chapman M.D. THIS IS AN ELECTRONICALLY VERIFIED REPORT Shaheen Chapman M.D. at 06/28/2017 4:16 PM RPBigg/alberto TD: 06/28/2017 03:52 JOB #: [id number] MEDICAL IMAGING REPORT Page 1 of 1 COPY
--- NOTE | ~2017-06-26 | CR72 ---
[facility] A Service of [facility] RADIOLOGY TEXT RESULTS PATIENT: TAMRA WALDEN LOCATION: [address]-15 : [birth year] UNIT #: [id number] AGE: [address]: Olena Ramirez MD SEX: F ORDER DR: [id number] [facility] [address] [facility]. [place], [place] [address] [id number] I MR#: [id number] Acc #: [id number] NAME: TAMRA WALDEN : 1930 SEX: F STUDY DATE/TIME: 06/27/2017 12:11 UNIT: [facility] ROOM: [facility] STUDY DESCRIPTION: CR Chest Single View Portable Attending Physician: Olena Ramirez M.D. Ordering Physician: Olena Ramirez M.D. Primary Care Physician: Emily Portillo M.D. MEDICAL IMAGING REPORT This report is preliminary unless electronic signature is present EXAM AP portable chest. Date: 06/27/2017. HISTORY Central line placement today. Chest pain. Symptoms began 6 days ago. COMPARISON AP portable chest 06/27/2017 at 08:48. FINDINGS Right subclavian approach central line tip extends to the mid SVC level. No pneumothorax is visible. Enteric tube extends below the level of the diaphragm with the tip not included in the field of view, advanced since the prior examination. Mild asymmetric interstitial prominence is demonstrated within the left lung. Mild left greater than right basilar airspace disease favored to represent atelectasis. IMPRESSION 1. Enteric tube has been advanced below the level of the diaphragm with the tip not included field of view. 2. Right subclavian approach central line extends to the SVC level. No visible pneumothorax. 3. Left greater right basilar airspace disease favored to represent atelectasis, unchanged. 4. Mild asymmetric prominence interstitial pattern in the left lung could represent atypical interstitial edema. 5. Stable cardiomegaly. Dictated by... [facility] A Service of [facility] RADIOLOGY TEXT RESULTS PATIENT: TAMRA WALDEN LOCATION: [facility]3 CICCU3-15 : 31 UNIT #: [id number] AGE: [address]: Olena Ramirez MD SEX: F ORDER DR: Noelle Sales M.D. THIS IS AN ELECTRONICALLY VERIFIED REPORT Noelle Sales M.D. at 06/28/2017 8:31 AM COREY/mari TD: 06/27/2017 16:49 JOB #: [id number] MEDICAL IMAGING REPORT Page 1 of 1 COPY
--- NOTE | ~2017-06-26 | CO ---
Unit #: [id number] #: [id number] Patient: TAMRA WALDEN [id number] [address] [place], [place] [address] [id number] I MR#: [id number] NAME: TAMRA WALDEN ROOM: [facility] Age: 87 Sex: F Admission Date: 06/26/2017 : 1930 Attending Physician: Olena Ramirez M.D. Primary Care Physician: Emily Portillo M.D. CONSULTATION REPORT 87-year-old white female who is admitted through the emergency room for right lower extremity cellulitis and sepsis. No history is obtainable from the patient. Information is obtained from the electronic medical record. Apparently her dropped something on her foot or she fell on her foot. Four to five days prior to admission, she developed increasing pain, swelling, and redness of the distal lower extremity. She presented to the emergency room. She is noted to be in AFib with rapid ventricular response with a heart rate of 110 and it was mildly hypertensive with a blood pressure of 86/41. She was bolused with IV fluid and given vancomycin. Sepsis protocol was started. Chest x-ray read by radiology showed enlarged cardiac silhouette and possibly some mild pulmonary vascular congestion. Antibiotics have been changed to Zyvox and Zosyn. Her BNP was markedly elevated at about 1500. She was noted to have pyuria. Her white count was approximately 29,000. She was moved to intensive care unit. We were asked to see. Arterial blood gases revealed a pH of 2.4, pCO2 of 29, pCO2 of 106 on 2 L. Followup gases were similar. CO2 was raised to 36. Creatinine was 3.7. Initial creatinine in 04/2016 was 1.2. Alk phos was 148, troponin was negative, lactic acid was 3.3 and 2.0. Coags 1.7, hematocrit 29.9. PAST MEDICAL HISTORY Atrial fibrillation maintained on Coumadin. Echocardiogram in 2014 showed ejection fraction of 55%, mild to moderate MR, moderate TR. Right ventricular systolic pressure at 50 to 60. History of essential hypertension, hyperlipidemia, chronic anemia, pulmonary hypertension, left femur fracture in the past. History of left thigh hematoma secondary to simple therapeutic INR. History of bilateral knee replacement. section. Hysterectomy. ALLERGIES Codeine, intolerant to morphine. HOME MEDICATIONS Currently listed although not complete: Celexa, metoprolol, potassium, ferrous sulfate, Altoprev. FAMILY HISTORY Coronary artery disease. SOCIAL HISTORY Lives with and son. Lifelong nonsmoker. No alcohol. No illicit drugs. REVIEW OF SYSTEMS Unit #: [id number] #: [id number] Patient: TAMRA WALDEN Not possible. Patient unable to give history. PHYSICAL EXAMINATION GENERAL: White female, very lethargic, does follow commands. Does move all extremities. VITAL SIGNS: Blood pressure is 112/60, pulse 93, respiratory rate 29, and afebrile. HEENT: Normocephalic and atraumatic. Pupils equal, round, reactive. Sclerae nonicteric. Oral cavity small. Mucous membranes dry. NECK: Supple. Trachea midline. LUNGS: Reveal crackles in the basis. CARDIAC: Irregular rate and rhythm. ABDOMEN: Nontender, bowel sounds present. Could not appreciate any hepatosplenomegaly. EXTREMITIES: Edema is up to the hips. Very brawny. There is cellulitis of right lower extremity, 2+ edema bilaterally up to the hips. SKIN: Hardened and brawny. DIAGNOSTIC STUDIES LABORATORY STUDIES: As noted. IMAGING STUDIES: Chest x-ray is reviewed. Chest x-ray today shows possibly some increased pulmonary vascular congestion and/or some atelectasis in the left mid lung field. IMPRESSION 1. Acute hypoxemic respiratory failure. 2. Acute and chronic kidney disease. 3. Metabolic acidosis secondary to above. 4. Left lower extremity cellulitis. 5. Probable urinary tract infection with pyuria. 6. Toxic metabolic encephalopathy likely secondary to above, rule out SOFTWARE TEST ANALYST event. 7. AFib, rapid ventricular response with subtherapeutic ProTime. 8. Sepsis. 9. Pulmonary hypertension. 10. Anemia. PLAN Broad spectrum antibiotics had been started with Zyvox and Zosyn. Await culture results. Fluid resuscitation and pressors to maintain blood pressure. Monitor for development of pulmonary edema. Will check echocardiogram to determine LV function. Would place on renal failure, adjusted Lovenox. Rule out DVT with bilateral lower extremity venous Doppler studies. Monitor respiratory status, intubated. Patient unable to control airway. Further recommendations pending this. Dictated by... Rodney Wang M.D. NABIL/lauren TD: 06/27/2017 11:28 JOB #: [id number] Unit #: [id number] #: [id number] Patient: TAMRA WALDEN CONSULTATION REPORT Page 1 of 1 X Rodney Wang MD CONSULTATION REPORT
--- NOTE | ~2017-06-26 | EKG ---
PATIENT: TAMRA WALDEN UNIT #: [id number] Ventricular Rate: 112 BPM Atrial Rate: 133 BPM QRS Duration: 132 ms Q-T Interval: 362 ms QTC Calculation(Bezet): 494 ms Calculated R [place]: -15 degrees Calculated T [place]: 15 degrees Diagnosis Line: Atrial fibrillation with rapid ventricular Diagnosis Line: response Diagnosis Line: Right bundle branch block Diagnosis Line: Abnormal ECG Diagnosis Line: When compared with ECG of 26-JUN-2017 19:03, Diagnosis Line: (unconfirmed) Diagnosis Line: No significant change was found Diagnosis Line: Confirmed by ONEYDA CHIN MD ([id number]) on 06/28/2017 Diagnosis Line: 11:59:26 PM INTERPRETING MD: ELSY SHABAZZ
--- NOTE | ~2017-06-26 | FU ---
[facility] Nutrition Therapy DATE: 06/30/17 Patient: TAMRA WALDEN Physician: KANA Address: [address] [place] [address] Room/Bed: [address], Zip: [place] [address] Admit Date: 06/26/17 Date of : [birth year] Height: 5 3 Weight: 189 86 NUTRITION MONITORING/FOLLOW-UP: Reason: Nutrition follow up Anthropometrics: Ht: 5'3" wt: 75 kg BMI: 29.2 Labs: Gluc 158 BUN 47 Creat 2.7 Ca++ 8.1 Alb 2.3 AST 92 Accuchecks 126-136 GFR 15.3 Meds: NaCl, furosemide, heparin, pepcid, lipitor, zofran, laxative of choice, ferrous gluconate I&O's: 1220/440, last BM 06/29 Skin: necrotic incision on right foot, no other changes noted Edema: 1+ BUE 2+ LLE 3+ RUE Estimated Nutrition Needs: [id number] kcals (18-22 kcals/kg) 75-90 grams protein (1.0-1.2 grams/kg) Diet: NPO + Jevity 1.5 @ 40 ml/hr + 30 mL Prostat BID Assessment: Chart reviewed, events noted. Pt is lethargic on continuous BiPAP in the ICU. Pt has necrotic incision on right foot, may require right BKA per RN report. Pt is receiving Jevity 1.5 @ 40 ml/hr + Prostat BID (goal rate). Per pump history, the pt has received 93% goal volume of enteral nutrition over the past 24 hours. Pt scheduled to have HD today. Edema noted. Please see recommendations below. Dx: Inadequate oral intake RT current diagnosis AEB NPO status- ACTIVE Intervention: 1. OPERATIONS CONSULTANT once appropriate 2. Continue enteral nutrition Monitoring, Evaluation and Goals: 1. Oral intake- NOT APPROPRIATE/ DIET NOT ADVANCED 2. Weight; monitor, prevent unintentional weight loss 3. Skin; promote healing- NOT MET 4. Improve labs; BUN, creat, electrolytes- IMPROVED [facility] Nutrition Therapy DATE: 06/30/17 Patient: TAMRA WALDEN Physician: KANA Address: [address] Room/Bed: [address] [facility], Zip: [place] [address] Admit Date: 06/26/17 Date of : [birth year] Height: 5 3 Weight: 189 86 NEW GOALS: 1. Enteral nutrition; provide >80% goal volume x 24 hrs 2. Improve labs; glucose, BUN, creat, AST Recommendations: 1. Continue enteral nutrition with Jevity 1.5 @ 40 mL/hr + 30 mL Prostat BID. 2. Once medically feasible recommend OPERATIONS CONSULTANT evaluation as appropriate. Advance diet per OPERATIONS CONSULTANT recommendations. No further dietary restrictions recommend until adequacy of PO intake can be assessed. 3. Consider adding a MVI with minerals to the pt's medication regimen. Status: Pt is at moderate nutritional risk. RD will continue to follow hospital course per protocol. Respectfully, ARLET GUSTAFSON RD, LD Food and Nutritional Services [facility] cc: client file
--- NOTE | ~2017-06-26 | A ---
[facility] Nutrition Therapy DATE: 06/27/17 Patient: TAMRA WALDEN Physician: KANA Address: [address] [facility] Room/Bed: [address], Zip: [place] [address] Admit Date: 06/26/17 Date of : [birth year] Height: 5 3 Weight: 177 80.5 NUTRITIONAL ASSESSMENT: REASON: NPO IN ICU ASSESSMENT PT IS 87 Y.O. FEMALE ADMITTED FOR (R) FOOT CELULITIS, DALJIT, SEPSIS? PMH: HTN, HLD, A-FIB, GERD Anthropometrics: 5'3", WT: 165# (BEDSIDE) (75 KG), BMI: 29.2 -WEIGHTS 160-177# SINCE ADMIT Labs: GLU: 114, BUN: 54, CREAT: 3.7, CA+:7.8, ALB: 2.8, NA+:134, GFR: 10.5 Meds: D5%, PEPCID, LIPITOR, ZOFRAN, LAXATIVE, LOPRESSOR, NACL, FERROUS GLUCONATE I/O & Bowel function: NOT AVAILABLE AT THIS TIME Skin Integrity: (R) LEG CELLULITIS; (R) 5TH TOE WOUND EDEMA: BLE EDEMA Estimated Nutrition Needs: [id number] KCAL (18-22 KCAL/KG BW) 75-90 G PRO (1.0-1.2 G PRO KG BW) FLUIDS CONSISTENT W/KCAL NEEDS Assessment: CHART REVIEWED AND EVENTS NOTED. PT SEEN FOR NPO IN ICU ASSESSMENT. PT NPO 2' DISORIENTATION, ?AMS, UNABLE TO DETERMINE SWALLOWING DIFFICULTIES AT THIS TIME (PER RN AND CHART). PT ASLEEP AT TIME OF VISIT. PT DID NOT WAKE TO VERBAL CUES. PT ADMITTED FOR ABOVE DX. DHT PLACEMENT SCHEDULED BUT NO PLANS IN PLACE TO BEGIN ALTERNATIVE NUTRITION SUPPORT AT THIS TIME. OF NOTE, PT NOTED TO BE POOR HISTORIAN. RD TO FOLLOW AND MAKE RECOMMENDATIONS BELOW. NO FAMILY IN ROOM AT THIS TIME. Dx: INADEQUATE ORAL INTAKE R/T CURRENT DIAGNOSIS AEB NPO STATUS. Intervention: 1. NPO Monitoring, Evaluation and Goals: 1. ORAL INTAKE; ADVANCE DIET AND CONSUME/TOLERATE >50% OF MEALS 2. WEIGHTS; PROMOTE GRADUAL WEIGHT LOSS TOWARDS HEALTHY BMI 3. LABS; WNL: BUN, CREAT, LYTES 4. SKIN; PROMOTE SKIN HEALING MONITOR: [facility] Nutrition Therapy DATE: 06/27/17 Patient: TAMRA ROLANDO IRAM Physician: KANA [address] Room/Bed: [address], Zip: [place] [address] Admit Date: 06/26/17 Date of : [birth year] Height: 5 3 Weight: 177 80.5 -DIET ADVANCEMENT -PO INTAKE/APPETITE -WEIGHTS -LABS Recommendations: 1. ONCE MEDICALLY FEASIBLE, ADVANCE DIET PER YARD CRANE OPERATOR EVAL FOR SAFE SWALLOW + HEALTHY HEART DIET 2' PMH 2. IF PT REMAINS NPO >48 HOURS, RECOMMEND TO BEGIN ALTERNATIVE NUTRITION SUPPORT VIA DHT OF JEVITY 1.5 @ 20 ML/HR, ADVANCE 10 ML q 4 HOURS TO GOAL RATE OF 40 ML/HR + SUGAR-FREE PROSTAT BID -TOTAL PROVIDES 1640 KCAL, 91 G PRO, 730 ML FREE H20 ADD FREE H20 FLUSHES PER MD 3. CONTINUE WOUND CARE REGIMEN RD WILL F/U PER PROTOCOL PT IS MODERATELY COMPROMISED Respectfully, JOSE HERNANDEZ MS, RD, LD Food and Nutritional Services [facility] cc: client file
--- NOTE | ~2017-06-26 | CO ---
Unit #: [id number] #: [id number] Patient: TAMRA WALDEN [id number] [address] [place], [place] [address] [id number] MR#: [id number] NAME: TAMRA WALDEN ROOM: [facility] Age: 87 Sex: F Admission Date: 06/26/2017 : 1930 Attending Physician: Olena Ramirez M.D. Primary Care Physician: Emily Portillo M.D. Consultation Date: 06/28/2017 CONSULTATION REPORT REASON FOR CONSULTATION Preoperative evaluation. HISTORY OF PRESENT ILLNESS This is an 87-year-old white female who was admitted with right lower extremity cellulitis and early sepsis. She was found to have acute kidney injury on chronic kidney disease and is followed by nephrology. She has a right fifth toe that is infected with a deep laceration that may require amputation. Echocardiogram this admission found the patient to have severe left ventricular systolic dysfunction where her ejection fraction was 25% to 30%. She was seen by our group in 2015 for atrial fibrillation where she was not on anticoagulation because of history of frequent falls at home. Her ejection fraction in 2015 was normal at 55%. She has valvular heart disease with moderate to severe mitral regurgitation, tricuspid regurgitation, and pulmonic valve regurgitation. The patient is a poor historian and is unable to provide much history. There is no family currently available. She does deny chest pain but complains of shortness of breath. Her troponin is elevated at 0.57 but there is no acute ischemic changes on electrocardiogram. BNP elevated at 1521 on admission, but has not evidence of heart failure on examination. PAST MEDICAL HISTORY 1. 2D echocardiogram 06/27/2017 shows ejection fraction equal to 25% to 30% with mild concentric left ventricular hypertrophy. There is severe global hyperkinesis of the left ventricle. Left and right atrium moderately large. Mildly dilated right ventricle. Moderate to severe mitral regurgitation. Moderate to severe tricuspid regurgitation and moderate to severe pulmonic valvular regurgitations. Right ventricular systolic pressure is 60 mmHg. 2. Hypertension. 3. Hyperlipidemia. 4. Permanent atrial fibrillation, not on anticoagulation because of history of falls. 5. Chronic anemia. 6. Pulmonary hypertension. 7. Right bundle branch block. 8. Osteoarthritis. PAST SURGICAL HISTORY 1. Bilateral total knee replacement. 2. section. 3. Hysterectomy. FAMILY HISTORY Unit #: [id number] #: [id number] Patient: TAMRA WALDEN Noncontributory. ALLERGIES Codeine and morphine. HOME MEDICATIONS 1. Celexa 40 mg daily. 2. Metoprolol succinate 25 mg b.i.d. 3. Potassium chloride 10 mEq daily. 4. Ferrous gluconate 324 mg daily. 5. Lovastatin 40 mg daily. 6. BuSpar 10 mg t.i.d. 7. Citalopram 40 mg daily. 8. Furosemide 40 mg, I am assuming daily. 9. Prilosec 25 mg b.i.d. 10. Trazodone 100 mg q.h.s. REVIEW OF SYSTEMS Unable to adequately obtain because of the patient's confusion. Please seen details in the HPI. PHYSICAL EXAMINATION VITAL SIGNS: Blood pressure 110/80, heart rate 110, temperature 99.0, BMI 31. GENERAL: This is an 87-year-old, mildly obese, elderly white female who is in no acute distress. NEUROLOGICAL: She is awake and oriented to self. There is no focal weaknesses. NECK: Trachea midline. No thyromegaly or lymphadenopathy. No jugular venous distention. HEART: S1, S2, heart sounds are normal. No murmurs, rubs or clicks. Irregularly irregular rhythm. LUNGS: With diminished breath sounds. There is no rhonchi or rales. ABDOMEN: Tender, with questionable distended bladder. No ascites. Bowel sounds are present. EXTREMITIES: With redness to both lower extremities. Noted for cellulitis. ASSISTANT SECRETARY: Unable to obtain assess. DIAGNOSTIC STUDIES LABORATORY STUDIES: Glucose 61, BUN 58, creatinine 3.7, sodium 137, potassium 4.3, magnesium 1.2. Troponin 0.27 to 0.57. BNP 1521. White count 26.0, hemoglobin 9.7, hematocrit 30.0, platelet count is 245. IMAGING STUDIES: Chest x-ray shows left greater than right basilar air space disease favoring atelectasis. CARDIOVASCULAR STUDIES: Electrocardiogram shows atrial fibrillation and rapid ventricular response, rate of 112 BPM with right bundle branch block and no acute ischemic changes. IMPRESSION 1. Septic shock with lactic acidosis. 2. Acute kidney injury on chronic kidney disease. 3. Hypomagnesemia. 4. Mildly elevated troponin, questionable supply demand. 5. Infected right fifth toe. 6. Hypertension. Unit #: [id number] #: [id number] Patient: TAMRA WALDEN 7. Hyperlipidemia. 8. Obesity. 9. Severe left ventricular systolic dysfunction with an ejection fraction of 25% to 30%. 10. Valvular heart disease. Would monitor severe mitral, tricuspid and pulmonic valve regurgitation. 11. Pulmonary hypertension. PLAN 1. Cardiology was consulted for preoperative evaluation. 2. Patient has moderate to high risk for general anesthesia but not many choices. Once the infectious source is eliminated, it may improve. 3. Electrolyte replacement deferred to Dr. Gimenez. 4. No cardiac intervention is needed at this time. 5. Elevated heart rate is secondary to infection, low blood pressure and volume loss. 6. Will suggest proceeding with surgery by Dr. Yu. 7. No family available to discuss his case. Will attempt to notify them. 8. Will follow the patient with you. Thank you for allowing us to assist with this patient's care. Dictated by... Chirag CrawfordPCarolinaRCarolinaNCarolina for Aleksey Pinzon/lauren TD: 06/29/2017 07:08 JOB #: [id number] CC: [facility] Mario Talbert M.D. CONSULTATION REPORT Page 1 of 1 X Wai Bates APRN X CONSULTATION REPORT
--- NOTE | ~2017-06-26 | CR7 ---
[facility] A Service of [facility] RADIOLOGY TEXT RESULTS PATIENT: TAMRA WALDEN LOCATION: [address]12[address] : [birth year] UNIT #: [id number] AGE: [address]: Olena Ramirez MD SEX: F ORDER DR: [id number] [facility] [address]. [place], [place] [address] [id number] I MR#: [id number] Acc #: [id number] NAME: TAMRA WALDEN : 1930 SEX: F STUDY DATE/TIME: 06/27/2017 08:52 UNIT: [facility] ROOM: [facility] STUDY DESCRIPTION: CR Abdomen Single AP View Attending Physician: Olena Ramirez M.D. Ordering Physician: Olena Ramirez M.D. Primary Care Physician: Emily Portillo M.D. MEDICAL IMAGING REPORT This report is preliminary unless electronic signature is present EXAM Abdomen film, 06/27/2017 08:52 hours HISTORY Dobbhoff tube advancement from earlier chest. COMPARISON Chest film, 06/27/2017 FINDINGS Supine view of the abdomen demonstrates a Dobbhoff tube directed leftward in the left upper quadrant of the abdomen in the proximal stomach at the fundus/proximal body. Bowel gas pattern unremarkable. IMPRESSION Dobbhoff tube has been advanced into the abdomen with tip in the left upper quadrant directed leftward likely at the fundus or proximal body of the stomach. Dictated by... Kala Ervin M.D. THIS IS AN ELECTRONICALLY VERIFIED REPORT Kala Ervin M.D. at 06/27/2017 4:29 PM Dat TD: 06/27/2017 10:51 JOB #: [id number] MEDICAL IMAGING REPORT Page 1 of 1 COPY
[~2017-06-26 18:25] MED LIST: ALPRAZOLAM PO; ASPIRIN PO; ATENOLOL PO; BUMEX PO; BUMEX2 MG PO; BUSPIRONE HCL10 MG PO; CARDIZEM SR PO; CARTIA XT PO; CELEXA PO; CLIDINIUM-CDP C1 CAP PO; CLOTRIMAZOLE-BE45 GM TP; DARVOCET-N 1001 TAB PO; FERRO-TIME325 MG PO; HYDROCODON-ACE1 EAC7 PO; K-TAB ER20 MEQ PO; LASIX PO; LISINOPRIL PO; LORTAB 5-325 M1 EACH PO; METOPROLOL SUCC25 MG PO; MEVACOR; MEVACOR PO; MOBIC; MOBIC PO; MOBIC15 MG PO; PREMARIN PO; PRILOSEC; PRILOSEC PO; PRILOSEC40 MG PO; TEMAZEPAM PO; TRAZODONE HCL100 MG PO; WARFARIN SODIUM2 M1 PO; XANAX0.5 M1 PO; ZESTRIL40 MG PO; ZOLOFT PO
[2017-06-26 19:24] LABS: BASOPHIL% 0.1 % (0-2.5); DIFF IND YES; HEMATOCRIT 31.1 % (35.0-45.0); HEMOGLOBIN 9.9 gm/dL (12.0-16.0); LYMPHOCYTE# 0.7 X10e3 (1.0-3.5); LYMPHOCYTE% 2.3 % (17.0-45.0); MEAN CELL VOLUME 92.4 FL (83-96); MEAN CORPUSCULAR HEMOGLOBIN 29.4 PG (28-34); MEAN CORPUSCULAR HGB CONC 31.9 g/dL (30-36); MEAN PLATELET VOLUME 8.2 FL (6.5-11.5); MONOCYTE# 1.5 X10e3 (0-1.0); MONOCYTE% 5.2 % (3.0-12.0); NEUTROPHIL# 26.9 X10e3 (1.5-7.1); NEUTROPHIL% 92.4 % (40-75); PLATELET COUNT 213 X10e3 (140-420); RED BLOOD COUNT 3.36 X10e (3.90-5.30); RED CELL DISTRIBUTION WIDTH 14.6 % (11.0-15.5); WHITE BLOOD COUNT 29.1 X10e3 (4.0-10.5)
[2017-06-26 19:41] LABS: PLATELET ESTIMATE NORMAL (NORMAL)
[2017-06-26 19:42] LABS: INR 1.5; PARTIAL THROMBOPLASTIN TIME 31.8 SECONDS (23.5-31.3); PROTHROMBIN TIME (PATIENT) 15.9 SECONDS (10.0-11.7); RBC NORMAL YES
[2017-06-26 19:47] LABS: ALBUMIN SERUM 2.8 g/dL (3.5-5.0); BILIRUBIN, DIRECT 0.8 mg/dL (0.0-0.2); BILIRUBIN,INDIRECT 1.1 mg/dL (0.0-0.9); BILIRUBIN,TOTAL 1.9 mg/dL (0.2-2.0); BUN/CREATININE RATIO 15.71; CALCIUM SERUM 8.3 mg/dL (8.4-10.2); CREATININE SERUM 3.5 mg/dL (0.6-1.4); GLOM FILT RATE Estimated 11.2 mL/min (>60); PROTEIN TOTAL SERUM 6.7 g/dL (6.0-8.3)
[2017-06-26] MEDS ORDERED: METOPROLOL SUCC25 MG PO (20:36)
[2017-06-26] MEDS ORDERED: CITALOPRAM HBR40 MG PO (20:36)
[2017-06-26] MEDS ORDERED: KLOR-CON SPRIN10 MEQ PO (20:38)
[2017-06-26] MEDS ORDERED: FERROUS GLUCON324 M1 PO (20:38)
[2017-06-26] MEDS ORDERED: ALTOPREV40 MG PO (20:39)
[2017-06-26 23:22] LABS: URINE SOURCE CLEAN CATCH
[2017-06-26 23:31] LABS: URINE APPEARANCE TURBID; URINE BLOOD NEG (NEG); URINE COLOR DK YELLOW; URINE GLUCOSE NEG (NEG); URINE KETONE TRACE (NEG); URINE LEUKOCYTE ESTERASE 2+ (NEG); URINE NITRATE NEG (NEG); URINE PROTEIN 2+ (NEG); URINE SPECIFIC GRAVITY 1.023 (1.003-1.035)
[2017-06-26 23:34] LABS: CULTURE INDICATED? YES; URINE BACTERIA AUWI 2+ (NEGATIVE); URINE SQUAMOUS EPITHELIAL CELL MOD /[HPF]; UWBCS1 AUWI 100-200 (0-5)
[2017-06-26 23:43] LABS: URINE BILIRUBIN NEG (NEG)
[2017-06-27 06:29] LABS: ARTERIAL BLD GAS O2 SATURATION 97.2 % (90.0-100.0); ARTERIAL BLOOD GAS CARBOXY HB 0.4 %sat (0.0-9.0); ARTERIAL BLOOD GAS HCO3 12.8 mmol/L; ARTERIAL BLOOD GAS MET HB 0.5 %sat (0.0-2.0); ARTERIAL BLOOD GAS PCO2 29.8 mmHg (35.0-45.0); ARTERIAL BLOOD GAS pH 7.242 (7.350-7.450)
[2017-06-27 06:30] LABS: ARTERIAL BLOOD GAS ALLEN TEST NORMAL; ARTERIAL BLOOD GAS ART SITE LEFT RADIAL; ARTERIAL BLOOD GAS DELIVERY NASAL CANNULA; ARTERIAL DRAW? YES
[2017-06-27 06:51] LABS: BASOPHIL# 0.1 X10e3 (0-0.3); BASOPHIL% 0.5 % (0-2.5); EOSINOPHIL# 0.1 X10e3 (0-0.7); EOSINOPHIL% 0.2 % (0.0-7.0); HEMATOCRIT 29.9 % (35.0-45.0); HEMOGLOBIN 9.4 gm/dL (12.0-16.0); LYMPHOCYTE# 0.6 X10e3 (1.0-3.5); LYMPHOCYTE% 1.8 % (17.0-45.0); MEAN CELL VOLUME 93.1 FL (83-96); MEAN CORPUSCULAR HEMOGLOBIN 29.2 PG (28-34); MEAN CORPUSCULAR HGB CONC 31.4 g/dL (30-36); MEAN PLATELET VOLUME 8.3 FL (6.5-11.5); MONOCYTE# 1.2 X10e3 (0-1.0); MONOCYTE% 3.9 % (3.0-12.0); NEUTROPHIL# 28.5 X10e3 (1.5-7.1); NEUTROPHIL% 93.6 % (40-75); PLATELET COUNT 199 X10e3 (140-420); RED BLOOD COUNT 3.21 X10e (3.90-5.30); RED CELL DISTRIBUTION WIDTH 15.1 % (11.0-15.5); WHITE BLOOD COUNT 30.4 X10e3 (4.0-10.5)
[2017-06-27 06:54] LABS: DIFF IND NO
[2017-06-27 06:57] LABS: INR 1.7; PARTIAL THROMBOPLASTIN TIME 35.5 SECONDS (23.5-31.3); PROTHROMBIN TIME (PATIENT) 18.2 SECONDS (10.0-11.7)
[2017-06-27 07:22] LABS: BUN/CREATININE RATIO 14.59; CALCIUM SERUM 7.8 mg/dL (8.4-10.2); CREATININE SERUM 3.7 mg/dL (0.6-1.4); GLOM FILT RATE Estimated 10.5 mL/min (>60); POTASSIUM 4.6 mmol/L (3.5-5.1)
[2017-06-27 09:07] LABS: ARTERIAL BLD GAS O2 SATURATION 96.9 % (90.0-100.0); ARTERIAL BLOOD GAS ALLEN TEST NORMAL; ARTERIAL BLOOD GAS ART SITE RIGHT RADIAL; ARTERIAL BLOOD GAS CARBOXY HB 0.5 %sat (0.0-9.0); ARTERIAL BLOOD GAS DELIVERY NASAL CANNULA; ARTERIAL BLOOD GAS HCO3 15.8 mmol/L; ARTERIAL BLOOD GAS MET HB 0.7 %sat (0.0-2.0); ARTERIAL BLOOD GAS PCO2 36.5 mmHg (35.0-45.0); ARTERIAL BLOOD GAS pH 7.245 (7.350-7.450); ARTERIAL DRAW? YES
[2017-06-27 10:12] LABS: CPK (CREATINE PHOSPHOKINASE) 182 IU/L (26-140); IRON SERUM 10 ug/dL (28-170); TOTAL IRON BINDING CAPACITY 219 ug/dL (269-535); TRANSFERRIN 156 mg/dL (192-382); TRANSFERRIN SATURATION 5 % (20-50)
[2017-06-27] MEDS ORDERED: BUSPIRONE HCL10 MG PO (14:44)
[2017-06-27] MEDS ORDERED: CITALOPRAM HBR40 M1 PO (14:44)
[2017-06-27] MEDS ORDERED: FERROUS GLUCON324 M1 PO (14:46)
[2017-06-27] MEDS ORDERED: FUROSEMIDE40 MG PO (14:46)
[2017-06-27] MEDS ORDERED: MEVACOR PO (14:47)
[2017-06-27] MEDS ORDERED: PRILOSEC PO (14:48)
[2017-06-27] MEDS ORDERED: DESYREL100 MG PO (14:49)
[2017-06-27] MEDS ORDERED: KLOR-CON SPRIN10 MEQ PO (14:49)
[2017-06-27] MEDS ORDERED: PREVNAR 13 SYR0.5 ML IM (14:49)
[2017-06-27 15:47] LABS: CALCIUM SERUM 7.6 mg/dL (8.4-10.2); CREATININE SERUM 3.6 mg/dL (0.6-1.4); GLOM FILT RATE Estimated 10.8 mL/min (>60); POTASSIUM 4.1 mmol/L (3.5-5.1)
[2017-06-27 16:14] LABS: AMPHETAMINE NEG (NEG); BARBITURATES NEG (NEG); BENZODIAZEPINES NEG (NEG); COCAINE NEG (NEG); MARIJUANA NEG (NEG); OPIATES POS (NEG); TRICYCLIC ANTIDEPRESSANTS NEG (NEG); U METHADONE NEG (NEG)
[2017-06-28 04:08] LABS: ARTERIAL BLD GAS O2 SATURATION 97.9 % (90.0-100.0); ARTERIAL BLOOD GAS CARBOXY HB 0.2 %sat (0.0-9.0); ARTERIAL BLOOD GAS HCO3 21.9 mmol/L; ARTERIAL BLOOD GAS PCO2 41.8 mmHg (35.0-45.0); ARTERIAL BLOOD GAS pH 7.328 (7.350-7.450)
[2017-06-28 04:11] LABS: ARTERIAL BLOOD GAS ALLEN TEST NORMAL; ARTERIAL BLOOD GAS ART SITE RIGHT RADIAL; ARTERIAL BLOOD GAS DELIVERY NASAL CANNULA; ARTERIAL DRAW? YES
[2017-06-28 06:11] LABS: INR 1.5; PARTIAL THROMBOPLASTIN TIME 36.3 SECONDS (23.5-31.3); PROTHROMBIN TIME (PATIENT) 16.5 SECONDS (10.0-11.7)
[2017-06-28 06:14] LABS: BASOPHIL# 0.1 X10e3 (0-0.3); BASOPHIL% 0.5 % (0-2.5); EOSINOPHIL# 0.2 X10e3 (0-0.7); EOSINOPHIL% 0.7 % (0.0-7.0); HEMOGLOBIN 9.7 gm/dL (12.0-16.0); LYMPHOCYTE# 1.1 X10e3 (1.0-3.5); LYMPHOCYTE% 4.1 % (17.0-45.0); MEAN CELL VOLUME 90.9 FL (83-96); MEAN CORPUSCULAR HEMOGLOBIN 29.5 PG (28-34); MEAN CORPUSCULAR HGB CONC 32.5 g/dL (30-36); MEAN PLATELET VOLUME 8.4 FL (6.5-11.5); MONOCYTE# 1.8 X10e3 (0-1.0); MONOCYTE% 6.9 % (3.0-12.0); NEUTROPHIL# 22.8 X10e3 (1.5-7.1); NEUTROPHIL% 87.8 % (40-75); PLATELET COUNT 245 X10e3 (140-420); RED CELL DISTRIBUTION WIDTH 14.9 % (11.0-15.5)
[2017-06-28 06:26] LABS: DIFF IND NO
[2017-06-28 06:39] LABS: ALBUMIN SERUM 2.1 g/dL (3.5-5.0); BILIRUBIN,TOTAL 1.5 mg/dL (0.2-2.0); BUN/CREATININE RATIO 15.67; CALCIUM SERUM 7.6 mg/dL (8.4-10.2); CREATININE SERUM 3.7 mg/dL (0.6-1.4); GLOM FILT RATE Estimated 10.5 mL/min (>60); POTASSIUM 4.3 mmol/L (3.5-5.1); PROTEIN TOTAL SERUM 5.3 g/dL (6.0-8.3)
[2017-06-28 06:50] LABS: MAGNESIUM 1.2 mg/dL (1.6-3.0); PHOSPHOROUS 5.6 mg/dL (2.5-4.6)
[2017-06-29 04:19] LABS: ARTERIAL BLD GAS O2 SATURATION 97.9 % (90.0-100.0); ARTERIAL BLOOD GAS CARBOXY HB 0.4 %sat (0.0-9.0); ARTERIAL BLOOD GAS HCO3 24.3 mmol/L
[2017-06-29 04:30] LABS: ARTERIAL BLOOD GAS ALLEN TEST NORMAL; ARTERIAL BLOOD GAS ART SITE RIGHT RADIAL; ARTERIAL BLOOD GAS DELIVERY NASAL CANNULA; ARTERIAL BLOOD GAS PCO2 51.7 mmHg (35.0-45.0); ARTERIAL DRAW? YES
[2017-06-29 05:11] LABS: BASOPHIL# 0.1 X10e3 (0-0.3); BASOPHIL% 0.2 % (0-2.5); EOSINOPHIL# 0.4 X10e3 (0-0.7); EOSINOPHIL% 1.5 % (0.0-7.0); HEMATOCRIT 30.7 % (35.0-45.0); HEMOGLOBIN 10.1 gm/dL (12.0-16.0); LYMPHOCYTE# 0.7 X10e3 (1.0-3.5); LYMPHOCYTE% 2.5 % (17.0-45.0); MEAN CELL VOLUME 90.1 FL (83-96); MEAN CORPUSCULAR HEMOGLOBIN 29.7 PG (28-34); MEAN PLATELET VOLUME 8.2 FL (6.5-11.5); MONOCYTE# 1.4 X10e3 (0-1.0); MONOCYTE% 4.8 % (3.0-12.0); NEUTROPHIL# 26.2 X10e3 (1.5-7.1); PLATELET COUNT 213 X10e3 (140-420); RED BLOOD COUNT 3.41 X10e (3.90-5.30); RED CELL DISTRIBUTION WIDTH 15.1 % (11.0-15.5); WHITE BLOOD COUNT 28.8 X10e3 (4.0-10.5)
[2017-06-29 05:13] LABS: DIFF IND NO
[2017-06-29 05:41] LABS: BILIRUBIN,TOTAL 1.8 mg/dL (0.2-2.0); BUN/CREATININE RATIO 15.95; CALCIUM SERUM 7.7 mg/dL (8.4-10.2); CREATININE SERUM 4.2 mg/dL (0.6-1.4); PHOSPHOROUS 6.7 mg/dL (2.5-4.6); POTASSIUM 3.9 mmol/L (3.5-5.1); PROTEIN TOTAL SERUM 5.1 g/dL (6.0-8.3)
[2017-06-29 15:48] LABS: ARTERIAL BLD GAS O2 SATURATION 96.3 % (90.0-100.0); ARTERIAL BLOOD GAS CARBOXY HB 0.4 %sat (0.0-9.0); ARTERIAL BLOOD GAS HCO3 26.3 mmol/L; ARTERIAL BLOOD GAS MET HB 0.5 %sat (0.0-2.0); ARTERIAL BLOOD GAS PO2 97.2 mmHg (80.0-100); ARTERIAL BLOOD GAS pH 7.308 (7.350-7.450)
[2017-06-29 15:49] LABS: ARTERIAL BLOOD GAS PCO2 52.6 mmHg (35.0-45.0)
[2017-06-29 15:50] LABS: ARTERIAL BLOOD GAS ART SITE RIGHT RADIAL; ARTERIAL DRAW? YES
[2017-06-29 15:51] LABS: ARTERIAL BLOOD GAS DELIVERY NASAL CANNULA
[2017-06-29 18:40] LABS: ARTERIAL BLD GAS O2 SATURATION 97.7 % (90.0-100.0); ARTERIAL BLOOD GAS HCO3 26.1 mmol/L; ARTERIAL BLOOD GAS PCO2 49.8 mmHg (35.0-45.0); ARTERIAL BLOOD GAS pH 7.328 (7.350-7.450)
[2017-06-29 18:41] LABS: ARTERIAL BLOOD GAS ALLEN TEST NORMAL; ARTERIAL BLOOD GAS ART SITE RIGHT RADIAL; ARTERIAL BLOOD GAS CARBOXY HB 0.5 %sat (0.0-9.0); ARTERIAL BLOOD GAS DELIVERY BIPAP 14/6; ARTERIAL BLOOD GAS MET HB 0.8 %sat (0.0-2.0); ARTERIAL DRAW? YES
[2017-06-30 05:56] LABS: BASOPHIL% 0.2 % (0-2.5); EOSINOPHIL# 0.1 X10e3 (0-0.7); EOSINOPHIL% 0.6 % (0.0-7.0); HEMATOCRIT 28.2 % (35.0-45.0); HEMOGLOBIN 9.2 gm/dL (12.0-16.0); LYMPHOCYTE# 0.4 X10e3 (1.0-3.5); LYMPHOCYTE% 2.9 % (17.0-45.0); MEAN CELL VOLUME 90.4 FL (83-96); MEAN CORPUSCULAR HEMOGLOBIN 29.5 PG (28-34); MEAN CORPUSCULAR HGB CONC 32.6 g/dL (30-36); MEAN PLATELET VOLUME 8.5 FL (6.5-11.5); MONOCYTE# 0.6 X10e3 (0-1.0); MONOCYTE% 3.9 % (3.0-12.0); NEUTROPHIL# 13.7 X10e3 (1.5-7.1); NEUTROPHIL% 92.4 % (40-75); PLATELET COUNT 125 X10e3 (140-420); RED BLOOD COUNT 3.12 X10e (3.90-5.30); RED CELL DISTRIBUTION WIDTH 14.9 % (11.0-15.5); WHITE BLOOD COUNT 14.9 X10e3 (4.0-10.5)
[2017-06-30 05:58] LABS: DIFF IND YES
[2017-06-30 06:21] LABS: PLATELET ESTIMATE NORMAL (NORMAL)
[2017-06-30 06:22] LABS: ANISOCYTOSIS SL; OVALOCYTES PRESENT; POIKILOCYTOSIS SL
[2017-06-30 06:23] LABS: MICROCYTOSIS SL
[2017-06-30 06:24] LABS: SCHISTOCYTES PRESENT
[2017-06-30 06:49] LABS: ALBUMIN SERUM 2.3 g/dL (3.5-5.0); BILIRUBIN,TOTAL 1.5 mg/dL (0.2-2.0); BUN/CREATININE RATIO 17.4; CALCIUM SERUM 8.1 mg/dL (8.4-10.2); CREATININE SERUM 2.7 mg/dL (0.6-1.4); GLOM FILT RATE Estimated 15.3 mL/min (>60); MAGNESIUM 1.9 mg/dL (1.6-3.0); PHOSPHOROUS 4.3 mg/dL (2.5-4.6); PROTEIN TOTAL SERUM 5.2 g/dL (6.0-8.3)
[2017-06-30 10:48] LABS: ARTERIAL BLOOD GAS CARBOXY HB 0.3 %sat (0.0-9.0); ARTERIAL BLOOD GAS HCO3 25.8 mmol/L; ARTERIAL BLOOD GAS pH 7.309 (7.350-7.450)
[2017-06-30 10:49] LABS: ARTERIAL BLOOD GAS ART SITE RIGHT RADIAL; ARTERIAL BLOOD GAS DELIVERY BIPAP; ARTERIAL BLOOD GAS PCO2 51.4 mmHg (35.0-45.0); ARTERIAL DRAW? YES
[2017-07-01 03:59] LABS: BILIRUBIN,TOTAL 1.6 mg/dL (0.2-2.0); CREATININE SERUM 2.3 mg/dL (0.6-1.4); GLOM FILT RATE Estimated 18.6 mL/min (>60); POTASSIUM 4.5 mmol/L (3.5-5.1)
[2017-07-01 05:11] LABS: BASOPHIL% 0.1 % (0-2.5); EOSINOPHIL# 0.2 X10e3 (0-0.7); EOSINOPHIL% 1.2 % (0.0-7.0); HEMATOCRIT 27.4 % (35.0-45.0); LYMPHOCYTE# 0.8 X10e3 (1.0-3.5); MEAN CELL VOLUME 90.6 FL (83-96); MEAN CORPUSCULAR HEMOGLOBIN 29.7 PG (28-34); MEAN CORPUSCULAR HGB CONC 32.8 g/dL (30-36); MEAN PLATELET VOLUME 8.5 FL (6.5-11.5); MONOCYTE# 1.5 X10e3 (0-1.0); MONOCYTE% 8.8 % (3.0-12.0); NEUTROPHIL% 84.9 % (40-75); RED BLOOD COUNT 3.03 X10e (3.90-5.30); RED CELL DISTRIBUTION WIDTH 14.9 % (11.0-15.5); WHITE BLOOD COUNT 16.5 X10e3 (4.0-10.5)
[2017-07-01 06:14] LABS: DIFF IND YES; PLATELET COUNT 83 X10e3 (140-420)
[2017-07-01 06:41] LABS: CHOLESTEROL 38 mg/dL (0-200); HDL CHOLESTEROL 6 mg/dL (35-95); LDL CHOLESTEROL 23 mg/dL (-130); LDL/HDL RATIO 4 RATIO (0-4); TRIGLYCERIDES 47 mg/dL (10-160)
[2017-07-01 08:36] LABS: ANISOCYTOSIS SL; PLATELET ESTIMATE DECREASED (NORMAL); POIKILOCYTOSIS SL
[2017-07-01 08:37] LABS: OVALOCYTES PRESENT
[2017-07-01 14:29] LABS: ARTERIAL BLD GAS O2 SATURATION 96.4 % (90.0-100.0); ARTERIAL BLOOD GAS CARBOXY HB 0.6 %sat (0.0-9.0); ARTERIAL BLOOD GAS HCO3 25.1 mmol/L; ARTERIAL BLOOD GAS PCO2 45.1 mmHg (35.0-45.0); ARTERIAL BLOOD GAS PO2 99.1 mmHg (80.0-100); ARTERIAL BLOOD GAS pH 7.353 (7.350-7.450)
[2017-07-01 14:30] LABS: ARTERIAL BLOOD GAS ALLEN TEST N; ARTERIAL BLOOD GAS ART SITE LEFT RADIAL; ARTERIAL BLOOD GAS DELIVERY NASAL CANNULA; ARTERIAL DRAW? YES
[2017-07-02 05:01] LABS: BASOPHIL% 0.1 % (0-2.5); EOSINOPHIL# 0.5 X10e3 (0-0.7); EOSINOPHIL% 2.3 % (0.0-7.0); HEMATOCRIT 27.1 % (35.0-45.0); HEMOGLOBIN 8.6 gm/dL (12.0-16.0); LYMPHOCYTE# 1.1 X10e3 (1.0-3.5); LYMPHOCYTE% 5.1 % (17.0-45.0); MEAN CELL VOLUME 91.2 FL (83-96); MEAN CORPUSCULAR HEMOGLOBIN 29.1 PG (28-34); MEAN CORPUSCULAR HGB CONC 31.9 g/dL (30-36); MEAN PLATELET VOLUME 9.1 FL (6.5-11.5); MONOCYTE# 1.5 X10e3 (0-1.0); MONOCYTE% 7.2 % (3.0-12.0); NEUTROPHIL# 17.8 X10e3 (1.5-7.1); NEUTROPHIL% 85.3 % (40-75); PLATELET COUNT 80 X10e3 (140-420); RED BLOOD COUNT 2.97 X10e (3.90-5.30); RED CELL DISTRIBUTION WIDTH 15.1 % (11.0-15.5); WHITE BLOOD COUNT 20.9 X10e3 (4.0-10.5)
[2017-07-02 05:02] LABS: DIFF IND YES
[2017-07-02 05:44] LABS: ALBUMIN SERUM 1.7 g/dL (3.5-5.0); BILIRUBIN,TOTAL 1.2 mg/dL (0.2-2.0); BUN/CREATININE RATIO 26.66; CALCIUM SERUM 7.9 mg/dL (8.4-10.2); CREATININE SERUM 2.7 mg/dL (0.6-1.4); GLOM FILT RATE Estimated 15.3 mL/min (>60); POTASSIUM 4.7 mmol/L (3.5-5.1); PROTEIN TOTAL SERUM 4.5 g/dL (6.0-8.3)
[2017-07-02 05:49] LABS: ANISOCYTOSIS SL; PLATELET ESTIMATE DECREASED (NORMAL)
[2017-07-04 08:02] LABS: HEPARIN INDUCED PLT AB Negative (Negative); UFH HIGH DOSE 100 2 (()); UFH LOW DOSE 0.1 1 (()); UFH LOW DOSE 0.5 2 (())
== END 2017-07-03 03:20 | disposition expired | DRG 853 ==
LOC: CED 18:25 → CICCU3 21:00 → CEDOF 21:00 → CED 21:05 → CEDOF 06-27 05:56 → CICCU2 06-27 05:56 → CICCU3 06-27 17:15
PROVIDERS: Internal Medicine; Internal Medicine Nephrology; Orthopaedic Surgery; Student in an Organized Health Care Education/Training Program
PROC: 05HM33Z Insertion of Infusion Device into Right Internal Jugular Vein, Percutaneous Approach (ICD-10-PCS; 2017-06-27)
PROC: B543ZZA Ultrasonography of Right Jugular Veins, Guidance (ICD-10-PCS; 2017-06-27)
PROC: B24BYZZ Ultrasonography of Heart with Aorta using Other Contrast (ICD-10-PCS; 2017-06-27)
PROC: 0Y6X0Z0 Detachment at Right 5th Toe, Complete, Open Approach (ICD-10-PCS; 2017-06-28)
PROC: 0J9Q0ZZ Drainage of Right Foot Subcutaneous Tissue and Fascia, Open Approach (ICD-10-PCS; 2017-06-28)
PROC: 05HN33Z Insertion of Infusion Device into Left Internal Jugular Vein, Percutaneous Approach (ICD-10-PCS; principal; 2017-06-29)
PROC: B544ZZA Ultrasonography of Left Jugular Veins, Guidance (ICD-10-PCS; 2017-06-29)
PROC: 5A1D60Z (ICD-10-PCS; 2017-06-29)
DX: A41.02 Sepsis due to Methicillin resistant Staphylococcus aureus (principal); J96.01 Acute respiratory failure with hypoxia; R65.21 Severe sepsis with septic shock; N17.0 Acute kidney failure with tubular necrosis; E43 Unspecified severe protein-calorie malnutrition; G92 Toxic encephalopathy; E87.4 Mixed disorder of acid-base balance; I50.23 Acute on chronic systolic (congestive) heart failure; I96 Gangrene, not elsewhere classified; I42.9 Cardiomyopathy, unspecified; D69.6 Thrombocytopenia, unspecified; N39.0 Urinary tract infection, site not specified; I13.0 Hypertensive heart and chronic kidney disease with heart failure and stage 1 through stage 4 chronic kidney disease, or unspecified chronic kidney disease; I50.30 Unspecified diastolic (congestive) heart failure; L03.115 Cellulitis of right lower limb; I27.2 Other secondary pulmonary hypertension; I48.91 Unspecified atrial fibrillation; E78.5 Hyperlipidemia, unspecified; Z96.653 Presence of artificial knee joint, bilateral; Z90.710 Acquired absence of both cervix and uterus; Z91.81 History of falling; E66.9 Obesity, unspecified; I08.8 Other rheumatic multiple valve diseases; M85.80 Other specified disorders of bone density and structure, unspecified site; S91.114A Laceration without foreign body of right lesser toe(s) without damage to nail, initial encounter; D64.9 Anemia, unspecified; K21.9 Gastro-esophageal reflux disease without esophagitis; F41.9 Anxiety disorder, unspecified; F32.9 Major depressive disorder, single episode, unspecified; N18.3 Chronic kidney disease, stage 3 (moderate); B96.20 Unspecified Escherichia coli [E. coli] as the cause of diseases classified elsewhere; Z68.29 Body mass index [BMI] 29.0-29.9, adult
CPT/HCPCS: 36415; 36600; 70450; 71010; 73630; 74000; 76770; 80048; 80053; 80061; 80076; 80307; 81003; 82550; 82570; 82607; 82803; 82947; 83540; 83550; 83605; 83615; 83735; 83880; 84100; 84156; 84300; 84484; 85025; 85044; 85520; 85610; 85652; 85730; 86022; 86140; 86850; 86900; 86901; 87040; 87070; 87075; 87077; 87086; 87088; 87186; 87205; 87340; 87493; 88305; 88311; 93005; 93306; 93970; 94660; 94760; 96360; 99285; C1750; C9113; J0692; J0884; J1170; J1644; J1940; J2020; J2270; J2310; J2370; J2543; J2550; J2997; J3010; J3370; J3475; J3490; J7060; P9047; Q4081